=== PATIENT | male | born 1955 | race African-American/Black ===

== ENCOUNTER 2020-06-08 16:28 | Emergency (ER) | payer MEDICARE, MEDICAID, SELFPAY ==
[2020-06-08 16:28] VITALS: BP 159/93; PULSE 64; O2SAT 100
[2020-06-08 16:29] VITALS: BP 159/93; PULSE 65; RESP 17; TEMP 36.7; O2SAT 100; BMI 27.1
--- NOTE | 2020-06-08 16:36 | CT_ITS ---
PROCEDURE: CT HEAD/BRAIN WO CON CLINICAL INDICATION: FALL Head injury with headache/pain, contusion, abrasion or hematoma COMPARISON: No exams were available for comparison TECHNIQUE: Axial images obtained. All CT scans at the facility use one or more dose reduction, viz: automated exposure control, ma/kV adjustment per patient size (including targeted exams where dose is matched to indication, i.e. head), or iterative reconstruction technique. FINDINGS: No midline shift, mass effect, intracranial hemorrhage, hydrocephalus, or extra-axial fluid collection is evident. There is generalized atrophy with hypoattenuation of the periventricular white matter consistent with microangiopathic changes.. The most inferior aspect of the temporal lobes and cerebellum is excluded on the exam. The calvarium has an unremarkable appearance. Soft tissue swelling is present in the left frontal area consistent with contusion. No sinus air-fluid level. IMPRESSION: 1. No acute intracranial findings. 2. Left frontal scalp contusion Dictated by: Rodríguez Wiley MD 06/09/2020 06:58 Rodríguez Wiley MD in [facility] 06/09/2020 06:58
--- NOTE | 2020-06-08 16:36 | XR_ITS ---
PROCEDURE: XR PELVIS 1-2V CLINICAL INDICATION: FALL Posttraumatic pain a COMPARISON: No exams were available for comparison TECHNIQUE: XR Pelvis AP View FINDINGS: Osteoarthritic changes are present involving both hips. Along the left aspect of the proximal femur laterally there is a pointed area of bony density directed inferiorly. This could represent a fracture or an unusual bony of area of exostosis. Please correlate with patient's pain and tenderness. Hip films may provide further evaluation if clinically warranted. IMPRESSION: Possible fracture proximal left femur laterally. This is at the intertrochanteric region. Please correlate with patient's area of pain and tenderness. Hip films may provide further evaluation. Dictated by: Rodríguez Wiley MD 06/09/2020 05:29 Rodríguez Wiley MD in [facility] 06/09/2020 05:29
--- NOTE | 2020-06-08 16:36 | CT_ITS ---
PROCEDURE: CT CERVICAL SPINE WO CON CLINICAL INDICATION: FALL Neck injury with pain, contusion/abrasion or hematoma, cervical sprain/strain the COMPARISON: No exams were available for comparison TECHNIQUE: Axial images obtained with sagittal and coronal reformats. All CT scans at the facility use one or more dose reduction, viz: automated exposure control, ma/kV adjustment per patient size (including targeted exams where dose is matched to indication, i.e. head), or iterative reconstruction technique. Axial spiral CT scanning performed of the cervical spine beginning at the base of the skull and continuing to the upper T-spine. 3-D multiplanar reconstruction with 3-D manipulation of volumetric data set in image rendering was completed by the radiologist and/or technologist with the supervision of the radiologist on independent workstation. FINDINGS: There is reversal of the cervical lordosis. Postsurgical changes are present from prior anterior cervical disc fusion C5-C6. C2-C3: Right-sided foraminal narrowing from facet hypertrophy. Degenerative disc disease C3-C4: Degenerative disc disease with facet hypertrophy and bilateral foraminal narrowing right greater than left. C4-C5: Degenerative disc disease. C5-C6: Prior anterior cervical disc fusion with mild bilateral foraminal narrowing. C6-C7: Degenerative disc disease. C7-T1: Unremarkable. Lung apices are clear. IMPRESSION: 1. No acute fracture. 2. Cervical spondylosis with postsurgical changes. Dictated by: Rodríguez Wiley MD 06/09/2020 07:00 Rodríguez Wiley MD in [facility] 06/09/2020 07:00
--- NOTE | 2020-06-08 16:36 | XR_ITS ---
PROCEDURE: XR CHEST AP CLINICAL HISTORY: FALL Posttraumatic pain COMPARISON: No exams were available for comparison FINDINGS: The cardiomediastinal silhouette and pulmonary vascularity are within normal limits. The lungs are clear without infiltrates, suspicious nodules, or pleural effusions. No acute bony abnormalities. IMPRESSION: No acute findings. Dictated by: Rodríguez Wiley MD 06/09/2020 05:30 Rodríguez Wiley MD in [facility] 06/09/2020 05:30
--- NOTE | 2020-06-08 17:24 | HMH.EDGENADL ---
ED Disposition Clinical Impression: Forehead contusion Qualifiers: Encounter type: initial encounter Qualified Code(s): S00.83XA - Contusion of other part of head, initial encounter Forehead laceration Qualifiers: Encounter type: initial encounter Qualified Code(s): S01.81XA - Laceration without foreign body of other part of head, initial encounter Disposition: Home, Self-Care Condition on Discharge: Good Instructions: DI for Laceration Repair With Dermabond, How to Prevent Falls, DI for Closed Head Injury Additional Instructions: Additional instructions for HEAD INJURY: See your physician as soon as possible for further evaluation. Return immediately if severe headache, vomiting, problems with vision or speech, numbness or weakness of the extremities, or severe neck pain. Referrals: Manuel Casillas MD [Primary Care Provider] - - Critical Care Critical Care Time: No Attestation: On 06/08/20, the high probability of a clinically significant, sudden or life threatening deterioration of the following system(s) required my full and direct attention, intervention and personal management. The time I documented below is in addition to time spent performing reported procedures but includes the following listed in this critical care notation. Medical Decision Making - Yao Inquiry Pt receiving controlled substance: No Vital Signs: 06/08/20 16:28 06/08/20 16:29 Temperature 98.0 F Temperature Source Oral Pulse Rate [Right Radial] 64 65 Respiratory Rate 17 Blood Pressure [Right Arm] 159/93 H 159/93 H Blood Pressure Mean [Right Arm] 115 115 Blood Pressure Source [Right Arm] Automatic Cuff Blood Pressure Position [Right Arm] Sitting 02 Sat by Pulse Oximetry 100 100 Oxygen Delivery Method Room Air Orders (Tests/Meds): ORDERS Category Date Time Status CT cervical spine wo con Stat Cat Scan 06/08/20 16:[address] head/brain wo con Stat Cat Scan 06/08/20 16:36 Taken XR chest AP Stat Exams 06/08/20 16:36 Taken XR pelvis 1-2V Stat Exams 06/08/20 16:36 Taken - CT Data CT Scan: Head Time Received: 17:24 ([facility] fax) ED CT Reviewed: Yes: I have viewed the radiologist's interpretation Findings Narrative: Head: Moderate left frontal soft tissue swelling and age-related changes but no evidence of acute intracranial pathology Cervical spine: No evidence of cervical spine fracture. General Adult HPI - General Chief complaint: Fall Stated complaint: FALL Time Seen by Provider: 06/08/20 18:05 Mode of Arrival: EMS Limitations: No Limitations Description of Symptoms (Recalled from ER Triage Doc. by RN): PT REPORTS TO ED 7 VIA [facility] FROM [facility]. S/P FALL AFTER BENDING OVER TRYING TO DOG HAIR CLIPPER HIS PHONE OFF THE FLOOR. LEFT EYE SWELLING NOTED. PT DENIES OTHER COMPLAINTS OR PAIN. HEMATOMA NOTED AT SITE. 2 STERI STRIPS PLACED TO SMALL ABRASION AT SITE PER USP. - History of Present Illness HPI narrative: Brought in by ambulance from [facility]. The patient says he was trying to bulk picker his phone when he fell striking his left forehead area. He has a small laceration and soft tissue swelling in that area. Denies loss of consciousness. Denies any other pain besides his head. Denies neck pain. No injury to chest, abdomen, back, or extremities. Arrives with Steri-Strips on place over laceration. Steri-Strip removed for examination and treatment. - Related Data Home Medications Medication Instructions Recorded Confirmed acetaminophen 500 mg capsule 500 mg PO BID cap 12/24/19 12/24/19 amlodipine 10 mg tablet 10 mg PO DAILY tab 12/24/19 12/24/19 atorvastatin 40 mg tablet 40 mg PO DAILY tab 12/24/19 12/24/19 lisinopril 40 mg tablet 40 mg PO DAILY tab 12/24/19 12/24/19 tamsulosin 0.4 mg capsule mg PO 12/24/19 12/24/19 trazodone 100 mg tablet 100 mg PO QHS tab 12/24/19 12/24/19 Allergies Allergy/AdvReac Type Severity Reaction Status Date / Time No Known Al
[2020-06-08 18:45] VITALS: BP 155/89; PULSE 78; RESP 18; TEMP 36.6; O2SAT 98
== END 2020-06-08 18:46 | disposition home or self-care (01) ==
PROVIDERS: Emergency Provider Emergency Medicine; PCP Internal Medicine Adolescent Medicine
DX: S01.81XA Laceration without foreign body of other part of head, initial encounter (principal); S00.83XA Contusion of other part of head, initial encounter; W01.0XXA Fall on same level from slipping, tripping and stumbling without subsequent striking against object, initial encounter; Y92.129 Unspecified place in nursing home as the place of occurrence of the external cause; F41.8 Other specified anxiety disorders; E78.5 Hyperlipidemia, unspecified; I10 Essential (primary) hypertension; Z96.642 Presence of left artificial hip joint
CPT/HCPCS: 12011; 70450; 71045; 72125; 72170; 99283

== ENCOUNTER 2020-10-06 19:42 | Emergency (ER) | payer MEDICARE, MEDICAID, SELFPAY ==
[2020-10-06 19:32] VITALS: BP 146/90; PULSE 90; RESP 18; TEMP 36.8; O2SAT 98
--- NOTE | 2020-10-06 19:57 | XR_ITS ---
PROCEDURE: XR CHEST PORTABLE CLINICAL HISTORY: fall Posttraumatic pain COMPARISON: CR XR CHEST AP from 06/08/2020 FINDINGS: The cardiomediastinal silhouette and pulmonary vascularity are within normal limits. The lungs are clear without infiltrates, suspicious nodules, or pleural effusions. Mild osteoarthritic change of the AC joints. Bone plate is present along the lower cervical spine. IMPRESSION: No acute findings. Dictated by: Rodríguez Wiley MD 10/07/2020 05:07 Rodríguez Wiley MD in [facility] 10/07/2020 05:07
--- NOTE | 2020-10-06 19:57 | CT_ITS ---
PROCEDURE: CT CERVICAL SPINE WO CON CLINICAL INDICATION: fall Neck injury with pain, contusion/abrasion or hematoma, cervical sprain/strain the COMPARISON: CT CT CERVICAL SPINE WO CON from 06/08/2020 TECHNIQUE: Axial images obtained with sagittal and coronal reformats. All CT scans at the facility use one or more dose reduction, viz: automated exposure control, ma/kV adjustment per patient size (including targeted exams where dose is matched to indication, i.e. head), or iterative reconstruction technique. Axial spiral CT scanning performed of the cervical spine beginning at the base of the skull and continuing to the upper T-spine. 3-D multiplanar reconstruction with 3-D manipulation of volumetric data set in image rendering was completed by the radiologist and/or technologist with the supervision of the radiologist on independent workstation. FINDINGS: No acute fracture or dislocation. There is reversal of the upper cervical lordosis. Mild degenerative disc disease at C2-C3 C3-C4 C4-C5 C5-C6 and C6-C7. Prior anterior cervical disc fusion at C5-C6. Mild foraminal narrowing on the right at C3-C4. Lung apices are clear. IMPRESSION: No acute fracture. Chronic changes as described above. Dictated by: Rodríguez Wiley MD 10/07/2020 06:32 Rordíguez Wiley MD in [facility] 10/07/2020 06:32
--- NOTE | 2020-10-06 19:57 | CT_ITS ---
PROCEDURE: CT HEAD/BRAIN WO CON CLINICAL INDICATION: fall Posttraumatic pain COMPARISON: CT CT HEAD/BRAIN WO CON from 06/08/2020 TECHNIQUE: Axial images obtained. All CT scans at the facility use one or more dose reduction, viz: automated exposure control, ma/kV adjustment per patient size (including targeted exams where dose is matched to indication, i.e. head), or iterative reconstruction technique. FINDINGS: No midline shift, mass effect, intracranial hemorrhage, hydrocephalus, or extra-axial fluid collection is evident. The calvarium has an unremarkable appearance. No mastoid effusion. Mild mucosal thickening of the left maxillary ethmoid sinuses. Non-specific flattening of the nasal bones incompletely image. IMPRESSION: 1. No acute intracranial findings. 2. Mild sinus disease. 3. Mild flattening of the nasal incompletely imaged Dictated by: Rodríguez Wiley MD 10/07/2020 06:19 Rodríguez Wiley MD in [facility] 10/07/2020 06:19
--- NOTE | 2020-10-06 19:57 | XR_ITS ---
PROCEDURE: XR PELVIS 1-2V CLINICAL INDICATION: fall Posttraumatic pain COMPARISON: CR XR PELVIS 1-2V from 06/08/2020 TECHNIQUE: XR Pelvis AP View FINDINGS: No fracture or dislocation is evident. Mild osteoarthritic changes are present involving the hips. There is an area of indentation along right femoral neck/head junction and may be seen with femoral acetabular impingement. Bony spurring/exostosis noted along the left subtrochanteric region laterally. Hypertrophy noted along the left femoral neck No lytic or blastic change. IMPRESSION: As above, no acute finding Dictated by: Rodríguez Wiley MD 10/07/2020 05:06 Rodríguez Wiley MD in [facility] 10/07/2020 05:06
--- NOTE | 2020-10-06 20:05 | HMH.EDFALL ---
ED Disposition Clinical Impression: Concussion without loss of consciousness Qualifiers: Encounter type: initial encounter Qualified Code(s): S06.0X0A - Concussion without loss of consciousness, initial encounter Contusion of hip Qualifiers: Encounter type: initial encounter Laterality: left Qualified Code(s): S70.02XA - Contusion of left hip, initial encounter Scalp laceration Qualifiers: Encounter type: initial encounter Qualified Code(s): S01.01XA - Laceration without foreign body of scalp, initial encounter Disposition: Home, Self-Care Condition on Discharge: Good Instructions: DI for Laceration Repair -- Soto Additional Instructions: soto out 10 days and resume prev orders Referrals: Manuel Casillas MD [Primary Care Provider] - - Critical Care Critical Care Time: No Attestation: On 10/06/20, the high probability of a clinically significant, sudden or life threatening deterioration of the following system(s) required my full and direct attention, intervention and personal management. The time I documented below is in addition to time spent performing reported procedures but includes the following listed in this critical care notation. Medical Decision Making - Medical Records Medical records reviewed: Yes: I reviewed the patient's medical records. - Yao Inquiry Pt receiving controlled substance: No Vital Signs: 10/06/20 19:32 Temperature 98.3 F Temperature Source Oral Pulse Rate [Right] 90 Respiratory Rate 18 Blood Pressure [Right Arm] 146/90 H Blood Pressure Mean [Right Arm] 108 02 Sat by Pulse Oximetry 98 Oxygen Delivery Method Room Air Orders (Tests/Meds): ORDERS Category Date Time Status CT cervical spine wo con Stat Cat Scan 10/06/20 19:[address] head/brain wo con Stat Cat Scan 10/06/20 19:[address] hip LT wo con Stat Cat Scan 10/06/20 21:[address] hip RT wo con Stat Cat Scan 10/06/20 21:45 Stop Req XR chest portable Stat Exams 10/06/20 19:57 Taken XR pelvis 1-2V Stat Exams 10/06/20 19:57 Taken - Radiology Data #1 Image(s): Chest, Pelvis Image Reviewed: Yes I reviewed the patient's radiology image Preliminary Findings: No Fracture Seen - CT Data CT Scan: Head, C-Spine, Other (lt hip) Time Received: 23:[address] Reviewed: Yes: I have viewed the radiologist's interpretation Preliminary Findings: No Fracture Seen Medical Decision Narrative: no acute fx and pt at baseline and lac stapled Fall HPI - General Chief Complaint: Fall Stated Complaint: fall Time Seen by Provider: 10/06/20 20:00 Mode of Arrival: EMS Source of Information: Patient, EMS, Medical Record Limitations: Altered Mental Status Description of Symptoms (Recalled from ER Triage Doc. by RN): halfway reports pt fell out of bed striking head on wheelchair. pt has lac on back of head - History of Present Illness HPI Narrative: pt fell at [facility] with scalp lac - no loc and no other c/o reported MD complaint: fall Onset (ago): hour(s) Fall from: wheelchair Fall witnessed: no Place fall occurred: halfway/[facility] Loss of consciousness: none Prolonged down time: no Symptoms prior to fall: none Location of injury: head, neck Severity: moderate Associated symptoms (after fall): denies - Related Data Home Medications Medication Instructions Recorded Confirmed acetaminophen 500 mg capsule 500 mg PO BID cap 12/24/19 12/24/19 amlodipine 10 mg tablet 10 mg PO DAILY tab 12/24/19 12/24/19 atorvastatin 40 mg tablet 40 mg PO DAILY tab 12/24/19 12/24/19 lisinopril 40 mg tablet 40 mg PO DAILY tab 12/24/19 12/24/19 tamsulosin 0.4 mg capsule mg PO 12/24/19 12/24/19 trazodone 100 mg tablet 100 mg PO QHS tab 12/24/19 12/24/19 Allergies Allergy/AdvReac Type Severity Reaction Status Date / Time No Known Allergies Allergy Verified 06/08/20 16:35 [facility] History - Hepatitis A Screen Drug use history?: No High risk sexual behaviors?: No History of sexually goldstein
--- NOTE | 2020-10-06 21:48 | CT_ITS ---
PROCEDURE: CT HIP LT WO CON CLINICAL HISTORY: fall Posttraumatic pain COMPARISON: CR XR PELVIS 1-2V from 10/06/2020 TECHNIQUE: Axial images obtained with sagittal and coronal reformats. All CT scans at the facility use one or more dose reduction, viz: automated exposure control, ma/kV adjustment per patient size (including targeted exams where dose is matched to indication, i.e. head), or iterative reconstruction technique. FINDINGS: Mild osteoarthritic changes of the left hip with joint space narrowing, osteosclerosis, and subchondral cystic changes of the femoral head and acetabulum. No acute fracture or dislocation. No lytic or blastic change. Exostosis is present involving the proximal femur laterally in the subtrochanteric region. Mild sclerosis of the left SI joint superiorly with fusion. Moderate amount of feces noted in the colon. IMPRESSION: 1. No acute fracture. 2. Degenerative changes as described above Dictated by: Rodríguez Wiley MD 10/07/2020 06:01 oRdríguez Wiley MD in [facility] 10/07/2020 06:01
[2020-10-06 23:25] VITALS: BP 134/82; PULSE 82; RESP 14; TEMP 36.8; O2SAT 98
== END 2020-10-06 23:26 | disposition home or self-care (01) ==
PROVIDERS: Emergency Provider Emergency Medicine; PCP Internal Medicine Adolescent Medicine
DX: S01.01XA Laceration without foreign body of scalp, initial encounter (principal); S06.0X0A Concussion without loss of consciousness, initial encounter; S70.02XA Contusion of left hip, initial encounter; W06.XXXA Fall from bed, initial encounter; Y92.122 Bedroom in nursing home as the place of occurrence of the external cause; F41.8 Other specified anxiety disorders; E78.5 Hyperlipidemia, unspecified; I10 Essential (primary) hypertension; Z96.642 Presence of left artificial hip joint; Z79.899 Other long term (current) drug therapy
CPT/HCPCS: 12002; 70450; 71045; 72125; 72170; 73700; 99283

== ENCOUNTER 2020-11-07 17:44 | Emergency (ER) | payer MEDICARE, MEDICAID, SELFPAY ==
[2020-11-07 17:44] VITALS: BP 160/90; PULSE 71; RESP 18; TEMP 36.7; O2SAT 98; BMI 26.4
[2020-11-07 18:01] VITALS: BP 148/91; PULSE 71; O2SAT 100
--- NOTE | 2020-11-07 18:02 | HMH.EDGENADL ---
ED Disposition Clinical Impression: Seizure-like activity Disposition: Home, Self-Care Condition on Discharge: Good Instructions: DI for Altered Mental Status Additional Instructions: See your physician as soon as possible for follow-up. Return to the emergency department if seizure-like activity recurs. Referrals: Provider,Referral, [Primary Care Provider] - - Critical Care Critical Care Time: No Attestation: On 11/07/20, the high probability of a clinically significant, sudden or life threatening deterioration of the following system(s) required my full and direct attention, intervention and personal management. The time I documented below is in addition to time spent performing reported procedures but includes the following listed in this critical care notation. Medical Decision Making - Yao Inquiry Pt receiving controlled substance: No Vital Signs: 11/07/20 17:44 Temperature 98.1 F Temperature Source Oral Pulse Rate [Right] 71 Respiratory Rate 18 Blood Pressure [Right Arm] 160/90 H Blood Pressure Mean [Right Arm] 113 02 Sat by Pulse Oximetry 98 Oxygen Delivery Method Room Air - Lab Data Lab Results 11/07/20 17:40: WBC 5.0, RBC 4.90, Hgb 14.9, Hct 45.1, MCV 92.1, MCH 30.5, MCHC 33.1, RDW 13.4, Plt Count 302, MPV 6.9 L, Neut % (Auto) 51.6, Lymph % (Auto) 37.7, Bennett % (Auto) 6.1, Eos % (Auto) 4.0, Baso % (Auto) 0.7, Neut # (Auto) 2.6, Lymph # (Auto) 1.9, Bennett # (Auto) 0.3, Eos # (Auto) 0.2, Baso # (Auto) 0.0 11/07/20 17:40: Sodium 141, Potassium 4.0, Chloride 102, Carbon Dioxide 29, Anion Gap 14.0, BUN 13, Creatinine 0.70, Estimated Creat Clear 95, Estimated GFR 114, Est GFR ( Amer) 138, Glucose 105 H, Calcium 10.4 H, Total Bilirubin 0.6, AST 32, ALT 23, Alkaline Phosphatase 68, Troponin I < 0.01, Total Protein 8.3 H, Albumin 5.1 H, Globulin 3.2, Albumin/Globulin Ratio 1.6 11/07/20 17:40: Urine Color Yellow, Urine Appearance Clear, Urine pH 6.0, Ur Specific [place] 1.015, Urine Protein Negative, Urine Glucose (UA) Negative, Urine Ketones Negative, Urine Blood Negative, Urine Nitrate Negative, Urine Bilirubin Negative, Urine Urobilinogen 0.2, Ur Leukocyte Esterase Negative, Urine RBC None, Urine WBC Occasional, Ur Squamous Epith Cells None, Urine Bacteria None Result diagrams: 11/07/20 17:40 11/07/20 17:40 Orders (Tests/Meds): ORDERS Category Date Time Status Troponin I Q3H Lab 11/07/20 21:15 Ordered Troponin I Q3H Lab 11/08/20 00:15 Ordered - Radiology Data #1 Image(s): Chest Image Reviewed: Yes I have reviewed radiologist's interpretation PROCEDURE INFORMATION: Exam: XR Chest Exam date and time: 11/07/2020 6:03 PM Age: 65 years old Clinical indication: Other: AMS TECHNIQUE: Imaging protocol: XR of the chest. Views: 1 view. COMPARISON: CR XR CHEST PORTABLE 10/06/2020 8:20 PM FINDINGS: Lungs: Unremarkable. No consolidation. Pleural spaces: Unremarkable. No pleural effusion. No pneumothorax. Heart/Mediastinum: Unremarkable. No cardiomegaly. Vasculature: Mild aortic tortuosity. Bones/joints: Unremarkable. IMPRESSION: No acute findings. - CT Data CT Scan: Head Time Received: 19:[address] Reviewed: Yes: I have viewed the radiologist's interpretation Findings Narrative: PROCEDURE INFORMATION: Exam: CT Head Without Contrast Exam date and time: 11/07/2020 6:03 PM Age: 65 years old Clinical indication: Altered mental status/memory loss; Additional info: AMS TECHNIQUE: Imaging protocol: Computed tomography of the head without contrast. Radiation optimization: All CT scans at this facility use at least one of these dose optimization techniques: automated exposure control; mA and/or kV adjustment per patient size (includes targeted exams where dose is matched to clinical indication); or iterative reconstruction. COMPARISON: CT HEAD/BRAIN WO CON 10/06/2020
--- NOTE | 2020-11-07 18:03 | CT_ITS ---
PROCEDURE INFORMATION: Exam: CT Head Without Contrast Exam date and time: 11/07/2020 6:03 PM Age: 65 years old Clinical indication: Altered mental status/memory loss; Additional info: AMS TECHNIQUE: Imaging protocol: Computed tomography of the head without contrast. Radiation optimization: All CT scans at this facility use at least one of these dose optimization techniques: automated exposure control; mA and/or kV adjustment per patient size (includes targeted exams where dose is matched to clinical indication); or iterative reconstruction. COMPARISON: CT HEAD/BRAIN WO CON 10/06/2020 8:10 PM FINDINGS: Brain: Normal. No hemorrhage. Unremarkable white matter. No mass effect. Cerebral ventricles: No ventriculomegaly. Bones/joints: Unremarkable. No acute fracture. Paranasal sinuses: Visualized sinuses are unremarkable. No fluid levels. Mastoid air cells: Visualized mastoid air cells are well aerated. Soft tissues: Unremarkable. IMPRESSION: No acute intracranial abnormality.
--- NOTE | 2020-11-07 18:08 | ECG_ITS ---
APPROVED REPORT Exam: Resting ECG HR:62 bpm ECG Measurements Heart Rate 62 AXES MN 146 P 93 QRSd 92 QRS 14 QT 396 T 61 QTc 401 Conclusion Normal sinus rhythm Septal infarct, age undetermined Abnormal ECG Electronically signed by : Manuel Casillas, 11/09/2020 20:30:14
[2020-11-07 18:10] LABS: Microscopic, Urine URINE MICROSCOPIC (MICROSCOPIC)
[2020-11-07 18:11] LABS: Basophils % 0.7 % (0.1-2.0); Eosinophils # 0.2 K/mm3 (0.0-0.4); Hematocrit 45.1 % (42.0-52.0); Hemoglobin 14.9 g/dL (14.1-18.0); Lymphocytes # 1.9 K/mm3 (0.7-4.5); Lymphocytes % 37.7 % (10-50); Mean Corpuscular HGB Conc 33.1 g/dL (31.8-35.4); Mean Corpuscular Hemoglobin 30.5 pg (27.0-31.2); Mean Corpuscular Volume 92.1 fl (80-94); Mean Platelet Volume 6.9 fl (7.4-10.4); Monocytes # 0.3 K/mm3 (0.1-1.0); Monocytes % 6.1 % (1.7-9.3); Neutrophils # 2.6 K/mm3 (1.8-7.8); Neutrophils % 51.6 % (37.0-80.0); Platelet Count 302 K/mm3 (142-424); Red Cell Distribution Width 13.4 % (11.5-17.5)
[2020-11-07 18:12] LABS: Appearance,Urine CLEAR (Clear); Bilirubin,Urine Negative (Negative); Blood, Urine Negative (Negative); Chloride 102 mmol/L (98-107); Color,Urine YELLOW (Yellow); Glucose,Urine (UA) Negative (Negative); Ketones,Urine Negative (Negative); Leukocyte Esterase,Urine Negative (Negative); Nitrate,Urine Negative (Negative); Protein,Urine Negative (Negative); Sodium 141 mmol/L (136-145); Specific Gravity, Urine 1.015 (1.005-1.030); Urobilinogen,Urine 0.2 EU/dl (0.2)
[2020-11-07 18:15] LABS: Alanine Aminotransferase 23 U/L (12-78); Alkaline Phosphatase 68 U/L (38-126); Aspartate Amino Transferase 32 U/L (17-59); Bilirubin,Total 0.6 mg/dl (0.2-1.3); Blood Urea Nitrogen 13 mg/dl (9-20); Creatinine Clearance Estimated 95 mL/min (50-200); Estimated Glomerular Filt Rate 114 ml/min (>60); GFR (African American) 138 ML/MIN (>60)
[2020-11-07 18:16] LABS: Albumin Level 5.1 g/dl (3.5-5.0); Albumin/Globulin Ratio 1.6 (1.1-1.8); Calcium 10.4 mg/dl (8.4-10.2); Carbon Dioxide 29 mmol/L (22.0-30.0); Globulin 3.2 g/dL (1.3-3.2); Glucose 105 mg/dl (74-100); Total Protein,Serum 8.3 g/dl (6.3-8.2)
[2020-11-07 18:22] LABS: WBC,Urine Occasional #/hpf (0-3)
[2020-11-07 18:28] LABS: Troponin I < 0.01 ng/ml (0.00-0.034)
[2020-11-07 20:33] VITALS: BP 157/91; PULSE 74; O2SAT 97
--- NOTE | 2020-11-07 20:47 | PC.NURSE ---
called report to gustavo Larson/andrea Garcia. Called [facility] and notified on transfer request. Stated it would be a while d/t transfer truck out.
[2020-11-08 00:22] VITALS: BP 122/76; PULSE 63; O2SAT 99
[2020-11-08 00:31] VITALS: BP 116/72; O2SAT 96
[2020-11-08 01:00] VITALS: BP 120/73; PULSE 65; O2SAT 100
[2020-11-08 01:44] VITALS: BP 121/74; PULSE 63; RESP 18; TEMP 36.5; O2SAT 98
== END 2020-11-08 01:48 | disposition home or self-care (01) ==
PROVIDERS: Emergency Provider Emergency Medicine
DX: R41.82 Altered mental status, unspecified (principal); G40.909 Epilepsy, unspecified, not intractable, without status epilepticus; I10 Essential (primary) hypertension; E78.5 Hyperlipidemia, unspecified
CPT/HCPCS: 70450; 71045; 80053; 81001; 84484; 85025; 93005; 99283

== ENCOUNTER → 2021-09-21 14:36 | Outpatient (CLI) | payer MEDICARE, MEDICAID, SELFPAY ==
[2021-09-21 15:04] LABS: Microscopic, Urine URINE MICROSCOPIC (MICROSCOPIC)
[2021-09-21 15:22] LABS: Appearance,Urine CLEAR (Clear); Bilirubin,Urine Negative (Negative); Blood, Urine Negative (Negative); Color,Urine YELLOW (Yellow); Glucose,Urine (UA) Negative (Negative); Ketones,Urine TRACE (Negative); Leukocyte Esterase,Urine Negative (Negative); Nitrate,Urine Negative (Negative); Protein,Urine TRACE (Negative); Specific Gravity, Urine 1.025 (1.005-1.030); Urobilinogen,Urine 0.2 EU/dl (0.2)
[2021-09-21 16:57] LABS: Bacteria,Urine 4+ /lpf
== END ==
PROVIDERS: Visit Provider Nurse Practitioner Family
DX: N39.0 Urinary tract infection, site not specified (principal)
CPT/HCPCS: 81001; 87086; 87088

== ENCOUNTER 2022-01-28 10:49 | Emergency (ER) | payer MEDICARE, MEDICAID, SELFPAY ==
[2022-01-28 10:47] VITALS: BP 125/89; PULSE 61; RESP 18; TEMP 36.9; O2SAT 100; BMI 22.3
--- NOTE | 2022-01-28 10:49 | CT_ITS ---
FINAL REPORT TECHNIQUE: Thin section axial images were obtained from skull base to vertex without contrast. This study was performed with techniques to keep radiation doses as low as reasonably achievable (ALARA). Individualized dose reduction techniques using automated exposure control or adjustment of mA and/or kV according to the patient's size were employed. CLINICAL HISTORY: trauma, fall hit back of head. COMPARISON: 11/07/2020 FINDINGS: There is no mass effect or midline shift. There is atrophy with mild ventricular enlargement. A new, small right subdural hemorrhage is seen on axial image 40 measuring 3 mm anteriorly. On axial image number 50, this measures 4 mm posteriorly. The posterior fossa is without acute abnormality. Basilar cisterns are preserved. There is soft tissue edema of the right temporal and parietal scalp. No skull fracture is seen. IMPRESSION: New, small right subdural hemorrhage without mass effect or midline shift. Atrophy. The emergency room nurse, Ijeoma was notified of these findings at 12:49 p.m.. Reviewed, Interpreted and Dictated by Keya Cortez MD Transcribed by Lin Cassidy Authenticated and [facility]
--- NOTE | 2022-01-28 10:49 | CT_ITS ---
FINAL REPORT TECHNIQUE: Thin section axial images were obtained through the cervical spine without contrast. Multiplanar reconstruction images were obtained from the axial data. Exam was performed using dose reduction techniques. CLINICAL HISTORY: trauma, fall COMPARISON: 10/07/2020 FINDINGS: There is no acute fracture or acute malalignment of the cervical spine. There is no evidence of unilateral or bilateral facet lock. Vertebral body height is preserved. There are postoperative changes of anterior fusion at C5-6. Reversal of lordosis is unchanged from prior exam. Craniocervical junction is intact. There is stable, multilevel degenerative disc disease. No acute paraspinal abnormality is identified. IMPRESSION: Stable postoperative and degenerative changes without acute osseous abnormality of the cervical spine. Reviewed, Interpreted and Dictated by Keya Cortez MD Transcribed by Lin Cassidy Authenticated and [facility]
--- NOTE | 2022-01-28 10:51 | HMH.EDFALL ---
ED Disposition Clinical Impression: Subdural hematoma Disposition: Xfer Short-Term Hosp Condition on Discharge: Good - Critical Care Critical Care Time: No Attestation: On , the high probability of a clinically significant, sudden or life threatening deterioration of the following system(s) required my full and direct attention, intervention and personal management. The time I documented below is in addition to time spent performing reported procedures but includes the following listed in this critical care notation. Medical Decision Making - Medical Records Medical records reviewed: Yes: I reviewed the patient's medical records. - Yao Inquiry Pt receiving controlled substance: No Vital Signs: 01/28/22 10:47 Temperature 98.4 F Temperature Source Oral Pulse Rate [Right Radial] 61 Respiratory Rate 18 Blood Pressure [Right Arm] 125/89 Blood Pressure Mean [Right Arm] 101 Blood Pressure Source [Right Arm] Automatic Cuff Blood Pressure Position [Right Arm] Sitting 02 Sat by Pulse Oximetry 100 Oxygen Delivery Method Room Air - Lab Data Lab Results 01/28/22 11:48: Urine Color Yellow, Urine Appearance Turbid, Urine pH 6.0, Ur Specific [place] 1.020, Urine Protein Negative, Urine Glucose (UA) Negative, Urine Ketones 1+, Urine Blood Negative, Urine Nitrate Negative, Urine Bilirubin Negative, Urine Urobilinogen 1.0, Ur Leukocyte Esterase Trace, Urine RBC Occasional, Urine WBC Occasional, Ur Squamous Epith Cells Occasional, Amorphous Sediment 2+, Urine Bacteria 4+ Orders (Tests/Meds): ORDERS Category Date Time Status Urine Culture Stat Micro 01/28/22 11:48 Received - Physician Consults Time: 13:16 (discussed with Dr John REES transfer accepts to ED) Fall HPI - General Stated Complaint: Fall Time Seen by Provider: 01/28/22 10:51 Limitations: Physical Limitations - History of Present Illness HPI Narrative: fall from standing at [place], hit head on floor/chair, baseline ms, no brenda whittaker MD complaint: fall Onset (ago): minute(s) Fall from: standing Place fall occurred: custodial/SNF Symptoms prior to fall: none Location of injury: head Associated symptoms (after fall): denies - Related Data Home Medications Medication Instructions Recorded Confirmed acetaminophen 500 mg capsule 500 mg PO BID cap 12/24/19 12/24/19 amlodipine 10 mg tablet 10 mg PO DAILY tab 12/24/19 12/24/19 atorvastatin 40 mg tablet 40 mg PO DAILY tab 12/24/19 12/24/19 lisinopril 40 mg tablet 40 mg PO DAILY tab 12/24/19 12/24/19 tamsulosin 0.4 mg capsule mg PO 12/24/19 12/24/19 trazodone 100 mg tablet 100 mg PO QHS tab 12/24/19 12/24/19 Allergies Allergy/AdvReac Type Severity Reaction Status Date / Time No Known Allergies Allergy Verified 06/08/20 16:35 [facility] History - Hepatitis A Screen Attestation statement:: This patient has been screened for Hepatitis A risk factors. Medical History: Reports:: Anxiety, Depression, Hyperlipidemia, Hypertension Denies:: Diabetes Mellitus Type 1, Diabetes Mellitus Type 2 Other Medical History: Reports: Other Comment: freq falls,gait disturbance Laterality Cases: Left: Total Hip Replacement Other Surgeries: Yes: Colonoscopy, Other Comment: lt knee - Social History Smoking Status: Unknown if ever smoked Alcohol Intake: never Substance Use Type: denies use Occupational Status: disabled Housing: custodial - Psychiatric History Pschychiatric History:: Reports:: Anxiety, Depression ROS Obtained: Yes All systems reviewed & no additional complaints Physical Exam - General General appearance: alert, in no apparent distress - Head Head exam: other (rt posterior scalp contusion) - Eye Eye exam: Present: normal appearance, EOMI - ENT ENT exam: Present: normal exam, normal oropharynx - Neck Neck exam: Present: normal inspection, full ROM, trachea midline - Chest Chest inspection: Present: normal inspection, symmetric chest wall rise. Abs
--- NOTE | 2022-01-28 11:11 | PC.NURSE ---
Pt to CT via stretcher
--- NOTE | 2022-01-28 11:41 | PC.NURSE ---
[facility] called and was checking on patient; Hali Maciel is who I spoke with. they are aware that we are waiting on scan reports at this time.
--- NOTE | 2022-01-28 11:51 | PC.NURSE ---
assisted pt with using urinal at this time. Pt urine was foul smelling and cloudy in nature, notified TAI LEWIS. Urine specimen sent to lab.
[2022-01-28 11:59] LABS: Microscopic, Urine URINE MICROSCOPIC (MICROSCOPIC)
[2022-01-28 12:08] LABS: Appearance,Urine TURBID (Clear); Bilirubin,Urine Negative (Negative); Blood, Urine Negative (Negative); Color,Urine YELLOW (Yellow); Glucose,Urine (UA) Negative (Negative); Ketones,Urine 1+ (Negative); Leukocyte Esterase,Urine TRACE (Negative); Nitrate,Urine Negative (Negative); Protein,Urine Negative (Negative)
[2022-01-28 12:26] LABS: Amorphous Sediment,Urine 2+ /lpf; Bacteria,Urine 4+ /lpf; RBC,Urine Occasional #/hpf (0-3); Squamous Epithelial Cell,Urine Occasional #/hpf (0-5); WBC,Urine Occasional #/hpf (0-3)
--- NOTE | 2022-01-28 12:46 | PC.NURSE ---
checked on status of CT results, rad staff states [facility] is in reading scans at this time.
--- NOTE | 2022-01-28 12:49 | PC.NURSE ---
took critical report from Chantel at [facility] at this time. States pt has a small R sided sudural hemorrhage with no mass effect. Results repeated and verified with Chantel
--- NOTE | 2022-01-28 12:51 | PC.NURSE ---
notified TAI LEWIS of [facility] critical report at this time, pt has a small R subdural hemorrhage, no mass effect. TAI LEWIS states contact [facility] for possible transfer of pt.
--- NOTE | 2022-01-28 12:52 | PC.NURSE ---
Contacting [facility] for patient transfer
--- NOTE | 2022-01-28 12:56 | PC.NURSE ---
Spoke with Britton in radiology regarding powersharing images to [facility]. Awaiting call back from [facility] once they have reviewed images.
--- NOTE | 2022-01-28 13:11 | PC.NURSE ---
MDs called back and Dr. Stacy is speaking with Neurosurgery at this time
--- NOTE | 2022-01-28 13:13 | PC.NURSE ---
Called radiology and spoke with Josselyn requesting imaging disc for patient transfer.
--- NOTE | 2022-01-28 13:17 | PC.NURSE ---
dr pak accepted pt to [facility]
--- NOTE | 2022-01-28 13:38 | PC.NURSE ---
Called and spoke with Teri at [facility] regarding patient transfer to ER; pt is ready and is able to transport BLS per ER MD
--- NOTE | 2022-01-28 13:48 | PC.NURSE ---
Called report to [facility] and updated Barker of transfer status
--- NOTE | 2022-01-28 14:37 | PC.NURSE ---
awaiting transport for pt to transfer to [facility]
--- NOTE | 2022-01-28 15:13 | PC.NURSE ---
EMS has arrived to transport pt to [facility]
[2022-01-28 15:20] VITALS: BP 127/79; PULSE 68; RESP 16; TEMP 36.8; O2SAT 99
== END 2022-01-28 15:20 | disposition short-term general hospital (02) ==
PROVIDERS: Emergency Provider Emergency Medicine
DX: S06.5X9A Traumatic subdural hemorrhage with loss of consciousness of unspecified duration, initial encounter; W19.XXXA Unspecified fall, initial encounter; Z79.899 Other long term (current) drug therapy; F41.9 Anxiety disorder, unspecified; F32.A Depression, unspecified; E78.5 Hyperlipidemia, unspecified; I10 Essential (primary) hypertension
CPT/HCPCS: 70450; 72125; 81001; 87086; 99285

== ENCOUNTER → 2022-05-20 08:34 | Outpatient (CLI) | payer MEDICARE, MEDICAID, SELFPAY ==
[2022-05-20 09:03] LABS: Microscopic, Urine URINE MICROSCOPIC (MICROSCOPIC)
[2022-05-20 09:24] LABS: Basophils # 0.1 K/mm3 (0-0.2); Basophils % 0.7 % (0.1-2.0); Eosinophils # 0.2 K/mm3 (0.0-0.4); Eosinophils % 2.5 % (0.1-12.0); Hematocrit 39.6 % (42.0-52.0); Hemoglobin 12.4 g/dL (14.1-18.0); Lymphocytes # 2.4 K/mm3 (0.7-4.5); Lymphocytes % 33.3 % (10-50); Mean Corpuscular HGB Conc 31.3 g/dL (31.8-35.4); Mean Corpuscular Hemoglobin 30.2 pg (27.0-31.2); Mean Corpuscular Volume 96.6 fl (80-94); Mean Platelet Volume 7.8 fl (7.4-10.4); Monocytes # 0.4 K/mm3 (0.1-1.0); Neutrophils # 4.3 K/mm3 (1.8-7.8); Neutrophils % 58.5 % (37.0-80.0); Platelet Count 447 K/mm3 (142-424); Red Blood Count 4.09 M/mm3 (4.60-6.20); Red Cell Distribution Width 14.2 % (11.5-17.5); White Blood Count 7.3 K/mm3 (4.8-10.8)
[2022-05-20 09:36] LABS: Bilirubin,Urine Negative (Negative); Blood, Urine Negative (Negative); Color,Urine YELLOW (Yellow); Glucose,Urine (UA) Negative (Negative); Ketones,Urine TRACE (Negative); Leukocyte Esterase,Urine 1+ (Negative); Nitrate,Urine Negative (Negative); PH,Urine 6.5 (5.0-8.5); Protein,Urine Negative (Negative); Urobilinogen,Urine 0.2 EU/dl (0.2)
[2022-05-20 09:38] LABS: Appearance,Urine Cloudy (Clear)
[2022-05-20 10:07] LABS: Bacteria,Urine 4+ /lpf; Squamous Epithelial Cell,Urine Occasional #/hpf (0-5)
[2022-05-20 10:30] LABS: Anion Gap 16.2 mEq/L (5-15); Blood Urea Nitrogen 17 mg/dl (9-20); Calcium 9.9 mg/dl (8.4-10.2); Carbon Dioxide 30 mmol/L (22.0-30.0); Chloride 98 mmol/L (98-107); Estimated Glomerular Filt Rate 113 ml/min (>60); GFR (African American) 137 ML/MIN (>60); Glucose 114 mg/dl (74-100); Potassium 4.2 mmoL/L (3.5-5.1); Sodium 140 mmol/L (136-145)
== END ==
PROVIDERS: PCP Internal Medicine Adolescent Medicine; Visit Provider Internal Medicine Adolescent Medicine
DX: R41.82 Altered mental status, unspecified (principal); N39.0 Urinary tract infection, site not specified; B95.2 Enterococcus as the cause of diseases classified elsewhere
CPT/HCPCS: 80048; 81001; 85025; 87086; 87088

== ENCOUNTER → 2022-06-09 13:31 | Outpatient (CLI) | payer MEDICARE, MEDICAID, SELFPAY | PROVIDERS: PCP Internal Medicine Adolescent Medicine; Visit Provider Nurse Practitioner | DX: Z01.810 Encounter for preprocedural cardiovascular examination (principal) | CPT/HCPCS: 93306 ==

== ENCOUNTER → 2022-06-26 16:15 | Outpatient (CLI) | payer MEDICARE, MEDICAID, SELFPAY ==
[2022-06-26 16:38] LABS: Basophils % 0.6 % (0.1-2.0); Eosinophils # 0.1 K/mm3 (0.0-0.4); Hematocrit 38.8 % (42.0-52.0); Hemoglobin 12.4 g/dL (14.1-18.0); Lymphocytes # 1.1 K/mm3 (0.7-4.5); Lymphocytes % 18.2 % (10-50); Mean Corpuscular HGB Conc 31.8 g/dL (31.8-35.4); Mean Corpuscular Volume 94.1 fl (80-94); Mean Platelet Volume 6.9 fl (7.4-10.4); Monocytes # 0.4 K/mm3 (0.1-1.0); Monocytes % 6.2 % (1.7-9.3); Neutrophils # 4.6 K/mm3 (1.8-7.8); Neutrophils % 74.1 % (37.0-80.0); Platelet Count 406 K/mm3 (142-424); Red Blood Count 4.13 M/mm3 (4.60-6.20); Red Cell Distribution Width 13.1 % (11.5-17.5); White Blood Count 6.2 K/mm3 (4.8-10.8)
[2022-06-26 16:45] LABS: Chloride 96 mmol/L (98-107); Potassium 4.7 mmoL/L (3.5-5.1); Sodium 136 mmol/L (136-145)
[2022-06-26 16:48] LABS: Anion Gap 12.7 mEq/L (5-15); Blood Urea Nitrogen 15 mg/dl (9-20); Carbon Dioxide 32 mmol/L (22.0-30.0); Estimated Glomerular Filt Rate 85 ml/min (>60); GFR (African American) 102 ML/MIN (>60); Glucose 111 mg/dl (74-100)
== END ==
PROVIDERS: PCP Nurse Practitioner Family; Visit Provider Nurse Practitioner Family
DX: M62.838 Other muscle spasm (principal); R25.1 Tremor, unspecified
CPT/HCPCS: 80048; 85025

== ENCOUNTER 2022-06-27 09:05 | Emergency (ER) | payer MEDICARE, MEDICAID, SELFPAY ==
[2022-06-27 09:05] VITALS: BP 150/95; PULSE 90; RESP 18; TEMP 36.4; O2SAT 99; BMI 24.4
[2022-06-27 09:30] VITALS: BP 142/91; PULSE 62; O2SAT 99
--- NOTE | 2022-06-27 09:36 | CT_ITS ---
PROCEDURE INFORMATION: Exam: CT Head Without Contrast Exam date and time: 06/27/2022 10:01 AM Age: 67 years old Clinical indication: Injury or trauma; Fall; Blunt trauma (contusions or hematomas); Without loss of consciousness; Additional info: Fall-- laceration to top of his head TECHNIQUE: Imaging protocol: Computed tomography of the head without contrast. Radiation optimization: All CT scans at this facility use at least one of these dose optimization techniques: automated exposure control; mA and/or kV adjustment per patient size (includes targeted exams where dose is matched to clinical indication); or iterative reconstruction. COMPARISON: CT HEAD/BRAIN WO CON 01/28/2022 11:10 AM FINDINGS: Brain: No intra or extra-axial masses, lesions or collections. [place] white matter distinction is maintained throughout the brain. No radiographic evidence of intracranial hemorrhage. No CT evidence of mass hemorrhage or acute infarction. Cerebral ventricles: Ventricles are of normal size and configuration. Paranasal sinuses: Visualized sinuses are unremarkable. No fluid levels. Mastoid air cells: Visualized mastoid air cells are well aerated. Bones/joints: Unremarkable. No acute fracture. Soft tissues: Unremarkable. IMPRESSION: No acute intracranial process is appreciated.
--- NOTE | 2022-06-27 09:36 | CT_ITS ---
PROCEDURE INFORMATION: Exam: CT Cervical Spine Without Contrast Exam date and time: 06/27/2022 10:03 AM Age: 67 years old Clinical indication: Injury or trauma; Fall; Blunt trauma; Prior surgery; Surgery date: 6+ months TECHNIQUE: Imaging protocol: Computed tomography of the cervical spine without contrast. Radiation optimization: All CT scans at this facility use at least one of these dose optimization techniques: automated exposure control; mA and/or kV adjustment per patient size (includes targeted exams where dose is matched to clinical indication); or iterative reconstruction. COMPARISON: CT CERVICAL SPINE WO CON 01/28/2022 11:12 AM FINDINGS: Tubes, catheters and devices: Surgical plate closely opposed to the anterior aspect of the vertebral bodies. C5-C6 Bones/joints: . posterior vertebral line and the spinal laminar line normal. odontoid process normal. no fracture. Straightening and reversal of the normal cervical lordosis. Diffuse degenerative disc disease most pronounced C2-C3, C3-C4 and C4-C5 Lungs: Lung apices are normal. Soft tissues: Unremarkable. IMPRESSION: No fracture.
--- NOTE | 2022-06-27 09:37 | HMH.EDGENADL ---
Discharge Plan Disposition Patient Disposition: Home, Self-Care Condition: Good Chief Complaint: Wound/Laceration Prescriptions Prescriptions: No Action acetaminophen 500 mg capsule 500 mg PO BID atorvastatin 40 mg tablet 20 mg PO DAILY mecobalamin (vitamin B12) 1,000 mcg tablet,chewable 1,000 mcg PO DAILY glycopyrrolate 1 mg tablet 1 mg PO TID oxcarbazepine 150 mg tablet 150 mg PO DAILY lisinopril 20 mg tablet 20 mg PO DAILY thiamine HCl (vitamin B1) 100 mg tablet 100 mg PO DAILY tramadol 50 mg tablet 50 mg PO HS gabapentin 100 mg capsule 100 mg PO BID carbidopa-levodopa 25-100 mg tablet 2 tab PO TID mirtazapine 7.5 mg tablet 7.5 mg PO HS Activity Restrictions/Add. Instructions Additional Instructions/Restrictions: Additional instructions for SCALP LACERATION: Clean the wound daily with soap and water. You may shower and shampoo your hair. Avoid submerging the wound. No swimming.. Apply a thin film of antibiotic ointment such as neosporin, polysporin, or triple antibiotic daily after showering. Be careful when combing or brushing hair so that you so not snag the soto with a comb or brush. Staple removal in 7 days. Return if any signs of infection including increasing pain, pus drainage, swelling, redness, red streaks, or fever. Clinical Impressions Clinical Impression: Laceration of scalp, Facial laceration, Fall Instructions Patient Instructions: DI for Laceration Repair -- Soto, DI for Closed Head Injury Discharge ED Provider: Harry Pantoja General Adult HPI General Chief complaint: Wound/Laceration Stated complaint: fall Time Seen by Provider: 06/27/22 09:30 Mode of Arrival: EMS Source of Information: Patient, EMS and Medical Record Limitations: Physical Limitations Description of Symptoms (Recalled from ER Triage Doc. by RN): c/o small laceration above the left eye and right hand pain. PT states that he was trying to get the remote about 5:45am this morning when he fell and hit the floor, denies any LOC. History of Present Illness HPI narrative: Brought in by ambulance from retirement. Patient says that he fell this morning when trying to get a remote. He has a laceration of his scalp and left supraorbital area. Denies any other injuries. Denies neck pain. custodial staff reported to our staff that the patient fell yesterday and last night. 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 [facility] medical record indicates last tetanus immunization was Tdap 12/07/2017. Related Data Home Medications Medication Instructions Recorded Confirmed acetaminophen 500 mg capsule 500 mg PO BID 12/24/19 06/16/22 atorvastatin 40 mg tablet 20 mg PO DAILY 06/03/22 06/16/22 carbidopa 25 mg-levodopa 100 mg 2 tab PO TID 06/03/22 06/16/22 tablet gabapentin 100 mg capsule 100 mg PO BID 06/03/22 06/16/22 glycopyrrolate 1 mg tablet 1 mg PO TID 06/03/22 06/16/22 lisinopril 20 mg tablet 20 mg PO DAILY 06/03/22 06/16/22 mecobalamin (vitamin B12) 1,000 1,000 mcg PO DAILY 06/03/22 06/16/22 mcg chewable tablet mirtazapine 7.5 mg tablet 7.5 mg PO HS 06/03/22 06/16/22 oxcarbazepine 150 mg tablet 150 mg PO DAILY 06/03/22 06/16/22 thiamine HCl (vitamin B1) 100 mg 100 mg PO DAILY 06/03/22 06/16/22 tablet tramadol 50 mg tablet 50 mg PO HS 06/03/22 06/16/22 Allergies Allergy/AdvReac Type Severity Reaction Status Date / Time No Known Allergies Allergy Verified 06/16/22 14:36 [facility] Disclaimer: The information contained in this section may have been updated after the patient was seen, as this information can be updated by other users. Medical History (Updated 06/27/22 @ 11:04 by Harry Pantoja MD) Encounter for pre-operative cardiovascular clearance HTN (hypertension) with goal to be determined Hyperlipidemia Social History (Reviewed 06/16/22 @ 1
--- NOTE | 2022-06-27 09:38 | XR_ITS ---
PROCEDURE INFORMATION: Exam: XR Chest Exam date and time: 06/27/2022 10:17 AM Age: 67 years old Clinical indication: Injury or trauma; Fall; Blunt trauma (contusions or hematomas) TECHNIQUE: Imaging protocol: Radiologic exam of the chest. Views: 1 view. COMPARISON: CR XR CHEST PORTABLE 11/07/2020 7:11 PM FINDINGS: Lungs: Lungs are well aerated without a focal area of consolidation. Pleural spaces: Unremarkable. No pleural effusion. No pneumothorax. Heart/Mediastinum: Unremarkable. No cardiomegaly. Bones/joints: Prior surgical fixation of the caudal aspect of the cervical spine. IMPRESSION: Lungs are well aerated without a focal area of consolidation.
--- NOTE | 2022-06-27 09:38 | XR_ITS ---
PROCEDURE INFORMATION: Exam: XR Pelvis Exam date and time: 06/27/2022 10:17 AM Age: 67 years old Clinical indication: Injury or trauma; Fall; Blunt trauma (contusions or hematomas); Bilateral; Pelvic region TECHNIQUE: Imaging protocol: Radiologic exam of the pelvis. Views: 1 or 2 view. COMPARISON: CR XR PELVIS 1-2V 10/06/2020 8:20 PM FINDINGS: Bones/joints: osseous structures of the pelvis without an acute process. rami are intact. Sacroiliac joints without separation/diastases/fracture. Iliac bones unremarkable/noncontributory. Degenerative changes within the visualized portions of the caudal aspect of the lumbar spine. Severe degenerative changes within the left hip including joint space narrowing, bony sclerosis, osteophytosis and mild remodeling. Soft tissues: See Bones/joints finding. Other findings: No acute process IMPRESSION: Severe degenerative changes within the left hip including joint space narrowing, bony sclerosis, osteophytosis and mild remodeling. No acute process
--- NOTE | 2022-06-27 10:19 | PC.NURSE ---
pt kept moving and sliding down in the bed. Had to keep going in and scooting him back up, pt wouldnt lay still very long for a period of time.
[2022-06-27 10:31] VITALS: BP 143/93; PULSE 79; O2SAT 100
--- NOTE | 2022-06-27 11:00 | PC.NURSE ---
pt brief and linens changed. pt tolerated well
--- NOTE | 2022-06-27 11:08 | PC.NURSE ---
attempted to call report to the [facility] x3. no answer
[2022-06-27 12:42] VITALS: BP 138/87; PULSE 81; RESP 20; TEMP 36.4; O2SAT 100
== END 2022-06-27 11:18 | disposition home or self-care (01) ==
PROVIDERS: Emergency Provider Emergency Medicine
DX: S01.112A Laceration without foreign body of left eyelid and periocular area, initial encounter (principal); S01.01XA Laceration without foreign body of scalp, initial encounter; S61.411A Laceration without foreign body of right hand, initial encounter; I10 Essential (primary) hypertension; E78.5 Hyperlipidemia, unspecified; N40.1 Benign prostatic hyperplasia with lower urinary tract symptoms; R47.1 Dysarthria and anarthria; G25.81 Restless legs syndrome; E53.8 Deficiency of other specified B group vitamins; E46 Unspecified protein-calorie malnutrition; Z68.24 Body mass index [BMI] 24.0-24.9, adult; Z79.1 Long term (current) use of non-steroidal anti-inflammatories (NSAID); Z79.899 Other long term (current) drug therapy; Z96.651 Presence of right artificial knee joint; W19.XXXA Unspecified fall, initial encounter
CPT/HCPCS: 12002; 70450; 71045; 72125; 72170; 99285

== ENCOUNTER 2022-07-06 12:57 | Outpatient (RCR) | payer MEDICARE, MEDICAID, SELFPAY ==
--- NOTE | 2022-07-07 08:33 | HMH.SLDYSPHA ---
Speech & Language Evaluation Speech/Language Dysphagia Evaluation Start: 07/07/22 07:58 Freq: ONCE Status: Active Protocol: Document 07/06/22 16:00 NATE (Rec: 07/07/22 08:32 [id number] Dysphagia Assess/Goals/Plan Assessment Date of Evaluation: 07/07/22 Evaluation Type Initial Certification Assessment/Problems Pt was assessed at [facility] at this date per MD order 2' dysphagia concerns. Does Patient Qualify for Service Yes Qualify/Failure Comment Based on clinical swallow evaluation results and clinical observation, pt would benefit from further instrumental testing. MBSS is recommended. Recommendations PHYSICIAN CERTIFICATION: The specified therapy services are required, authorized, and reviewed every 30 days. Diet Recommendations Pureed Liquid Type Recommendations [place] Consistency SL Swallow Guidelines High aspiration risk Crush Meds Crush all meds Dysphagia Swallow Precautions/Strategies Sitting Upright (90 deg),No Straw,Small Bites and Sips, Alternate Liquids/Solids Comment Pt would benefit from instrumental testing of MBSS to fully assess phases of the swallow 2' observed difficulty and need for consistent cues to swallow. Plan Pt/Guardian verbally ack understanding Yes of dx/prognosis/goals G -code Required No STG-Other Comment/Non-Specific Pt will complete further instrumental testing by MBSS following PEG procedure. Drip Box Tender Goals Pt will maintain nutrition/hydration via Yes: pt is receiving PEG alternative means Education Instructions provided Discussed with caregiver and pt the results of the clinical swallow evaluation, need for MBSS/further instrumental assessment, and diet recommendations who expresssed understanding. [employer] also called MD curriculum assistant principal and requested order for MBSS for pt following PEG procedure . Pt/Caregiver able to recall information Able to recall/restate Reinforcement needed No Speech & Language HPI History Present Illness Description of Patient Problem
== END 2022-07-06 12:59 | disposition home or self-care (01) ==
LOC: ST 12:57
PROVIDERS: Visit Provider Surgery
DX: R13.10 Dysphagia, unspecified (principal)
CPT/HCPCS: 92610

== ENCOUNTER 2022-07-08 12:53 | Inpatient (IN) | payer MEDICARE, MEDICAID, SELFPAY ==
[2022-07-06 10:05] VITALS: BMI 19.0
--- NOTE | 2022-07-07 08:23 | SUR.PREOP ---
TC to VICENTE Hinojosa at [facility] to clarify if the pt has ability to sign own consent for peg placement scheduled for tomorrow, 07-08-22. VICENTE says that pt is able to sign own consent. Scored 12 on BIMS score. Micaela says Dr. Casillas said pt was ok to sign consent when discussed with at [facility]. Lilibeth Gudino concrete saw operator notified of above. Dr. Maya ok with pt signing own consent.
[2022-07-08] VITALS (26 sets, daily range): BP systolic 103–174; BP diastolic 69–102; PULSE 57–81; RESP 16–23; TEMP 36.1–43; O2SAT 95–100; BMI 18.8
--- NOTE | 2022-07-08 11:40 | P.PN_ITS ---
[facility] Disclaimer: The information contained in this section may have been updated after the patient was seen, as this information can be updated by other users. Medical History BPH with obstruction/lower urinary tract symptoms Dysarthria and anarthria Encounter for pre-operative cardiovascular clearance HTN (hypertension) with goal to be determined Hyperlipidemia Obesity Progressive supranuclear ophthalmoplegia [[id number]] Protein-calorie malnutrition Repeated falls Restless leg syndrome Urinary tract infection Vitamin B12 deficiency Surgical History History of left knee replacement Family History (Updated 07/08/22 @ 11:15 by Abel Hernández RN) Other No significant family history Social History Smoking Status: Unknown if ever smoked alcohol intake: never substance use type: denies use current occupational status: disabled Travel in the last 8 weeks: None housing: senior care [facility] Anesthesia Checklist Patient Identification Patient Identification: Arm Band Structural Data Admitted From: Long-term Nursing Facility Planned Operative Procedure/s: PEG Tube Placement Consent for Planned Operative Procedure(s) Verified: Yes Verified Documents: Surgical Consent and History and Physical NPO Status Verified Time NPO: 00:00 Additional verifications Anesthesia Reactions: No Airway Assessment C-Spine Mobility Assessed: Yes TMJ Mobility Assessed: Yes Dentition: Good Dentition Neurological Assessment Level of Consciousness: Awake and Alert Anesthesia Plan Anesthesia Risk discussed: Yes Anesthesia Plan: Verified ASA Class: III Anesthesia Type: MAC
--- NOTE | 2022-07-08 12:26 | EXP.GEN.HP ---
HPI HPI HPI: This is a 67-year-old gentleman who presents for percutaneous endoscopic gastrostomy tube. Repeat dysphagia evaluation completed earlier this week confirmed persistent impairment. Recommendations for completion modified barium swallow after PEG placement were made. Forwarded from office visit dated June 30, 2022: This is a 67-year-old gentleman seen in consultation from his primary care provider for gastrostomy tube placement.? He was initially scheduled to undergo percutaneous gastrostomy tube at [facility]; however, his procedure was postponed/canceled secondary to temporary absence of surgical coverage. Reportedly, a modified barium swallow has been performed but was quite a while ago . He has seemingly been suffering from increasing dysphagia and has lost approximately 200 pounds over the past number of months . [facility] Disclaimer: The information contained in this section may have been updated after the patient was seen, as this information can be updated by other users. Medical History BPH with obstruction/lower urinary tract symptoms Dysarthria and anarthria Encounter for pre-operative cardiovascular clearance HTN (hypertension) with goal to be determined Hyperlipidemia Obesity Progressive supranuclear ophthalmoplegia [[id number]] Protein-calorie malnutrition Repeated falls Restless leg syndrome Urinary tract infection Vitamin B12 deficiency Surgical History History of left knee replacement Family History (Updated 07/08/22 @ 11:15 by Abel Hernández RN) No significant family history Social History Smoking Status: Unknown if ever smoked alcohol intake: never substance use type: denies use current occupational status: disabled Travel in the last 8 weeks: None housing: jail Meds Home Medications and Allergies Home Medications Medication Instructions Recorded Confirmed Type acetaminophen 500 mg capsule 500 mg PO BID PRN Mild Pain (Scale 12/24/19 07/06/22 History Score 1-4) atorvastatin 40 mg tablet 20 mg PO DAILY Cholesterol 06/03/22 07/06/22 History carbidopa 25 mg-levodopa 100 mg 2 tab PO TID opthalmoplegia 06/03/22 07/06/22 History tablet gabapentin 100 mg capsule 100 mg PO BID leg pain 06/03/22 07/06/22 History glycopyrrolate 1 mg tablet 1 mg PO TID increased secretions 06/03/22 07/06/22 History lisinopril 20 mg tablet 20 mg PO DAILY BP 06/03/22 07/06/22 History mecobalamin (vitamin B12) 1,000 1,000 mcg PO DAILY Supplement 06/03/22 07/06/22 History mcg chewable tablet mirtazapine 7.5 mg tablet 7.5 mg PO HS Depression 06/03/22 07/06/22 History oxcarbazepine 150 mg tablet 150 mg PO BID dementia 06/03/22 07/06/22 History thiamine HCl (vitamin B1) 100 mg 100 mg PO BID Supplement 06/03/22 07/06/22 History tablet tramadol 50 mg tablet 50 mg PO BID arthritis pain 06/03/22 07/06/22 History carboxymethylcellulose sodium 1 % 1 drp ophthalmic (eye) 12 dry eyes 07/06/22 07/06/22 History eye liquid gel drops carboxymethylcellulose sodium 1 % 1 drp ophthalmic (eye) QID dry eyes 07/06/22 07/06/22 History eye liquid gel drops diclofenac sodium 1 % topical gel 2 g topical QID PRN hand/shoulder 07/06/22 07/06/22 History pain guaifenesin 50 mg/5 mL oral liquid 200 mg PO Q6HP PRN Cough 07/06/22 07/06/22 History New Prescriptions to Start Prescriptions: Allergies Allergy/AdvReac Type Severity Reaction Status Date / Time No Known Allergies Allergy Verified 07/06/22 10:19 Exam Data for Last 24 hours Vital signs and Labs for Last 24 Hours: Temp Pulse Resp BP Pulse Ox 97.0 F L 60 18 138/98 H 98 07/08/22 11:15 07/08/22 11:15 07/08/22 11:15 07/08/22 11:15 07/08/22 11:15 I & O for Last 24 hours: In
--- NOTE | 2022-07-08 13:10 | HMH.SCOPE ---
Procedure: Date: 07/08/22 Patient Date of :: 1955 Procedure Performed:: Percutaneous endoscopic gastrostomy tube Indications:: Feeding difficulty Performing Provider:: Zach Maya MD Referring Provider:: . Sedation:: Monitored anesthesia care Procedure:: After informed consent was obtained the patient was taken to the endoscopy suite. The patient was maintained in the supine position. Monitored anesthesia care ensued. Pulse, blood pressure, and oxygen saturation were monitored throughout the procedure. The endoscope was advanced into the gastric lumen. Transillumination and impulse both noted. The point of maximal impulse and transillumination was marked. The upper abdomen was prepped and draped in a sterile fashion. After infiltration local anesthetic a small transverse incision was made directly over the site of maximal impulse/transillumination. A large bore Angiocath was placed in position under direct visualization. The guidewire was placed into the gastric lumen through the catheter and retrieved via snare. The feeding tube was secured to the guidewire and it was then maneuvered into appropriate position in the gastric lumen. The feeding tube was secured at just over 2 cm. The abdominal binder was placed in position. The gastroscope was readvanced. The bumper was in good position. The tube easily rotated. The endoscope was removed and the patient was then transferred to recovery in stable condition. Findings:: Gastrostomy tube anchored just beyond 2 cm Specimens:: None Recommendations:: Post-PEG orders written Complications:: No immediate Estimated blood obtained (mL): 5
--- NOTE | 2022-07-08 13:52 | PC.NURSE ---
Pt arrived to the floor at this time
--- NOTE | 2022-07-08 14:47 | DIET.NUTRFU ---
RD consulted to start TF post 4hours after PEG placed. Patient has hx of dyphagia, had bedsideswa llk
--- NOTE | 2022-07-08 14:48 | DIET.NUTRFU ---
RD consulted for TF to start 4 hours post PEG placement. Patient is from [place] and has a hx of dysphasia. Bedside swallow study preformed today and recommended pureed with nectar thick liquids and no straws. They also recommended MBSS post sx. Patient reported a 200# wt loss, according to our records he has lost 50# since July on 06/27. He is on remeron which may cause increase in appetite. Currently on IVF for hydration, once up to goal rate in TF IVF should be discontinued. Admitting labs hydration was WNL. Start TF: Jevity 1.2 at 20ml increase to 60ml/fwa=8222wr/1728kcal/80gm protein and 1162ml free water, flush with 120ml A6d=884zy+1882ml/day this would provide 100% nutritional needs at 1600-1700kcal/70-80gm protein and 1900ml/day
--- NOTE | 2022-07-08 14:49 | PC.NURSE ---
SPOKE WITH ETHAN FARLEY AT [facility] REGARDING PT, SHE STATES PT IS ALERT X2-3 ON GOOD DAYS, SAYS PT IS INTERMITTENTLY CONFUSED. PT WILL TALK, ITS JUST HARD TO UNDERSTAND AT TIMES. PT IS FALL RISK, FALLS FREQUENTLY AT THE [facility]. PT DOES NOT WALK, 1-2 ASSIST FOR TRANSFERS. SINCE PT HAS CAME TO ME HE HAS NOT BEEN ABLE TO ANSWER QUESTIONS, OR GIVEN ANY VERBAL RESPONSE. PT DROOLING. CALLED DOWN TO PACU REGARDING PT, ADVISED, PT WAS GIVEN KETAMINE POSTOP. TEMP ON THE LOW SIDE OF 97.5 AX, OTHER VSS. WILL CONT TO MONITOR TEMP. WARM BLANKETS APPLIED. BED ALARM ON FOR PT SAFETY.
--- NOTE | 2022-07-08 19:00 | PC.NURSE ---
it was noted upon start of shift that pt had pulled recently place peg tube out, emelia notified dr. lopez., plan to take pt back to surgery, pt is unable to confirm orientation, pt is only able to state name, consent was obtained via telephone from pts next of kin, father,
--- NOTE | 2022-07-08 19:10 | PC.NURSE ---
PT PULLED IV OUT OF RT AC. NEW 20G IV PLACED IN LT HAND (LT SIDE PER PTS REQUEST). PT C/O PAIN, TREATED PER SEP. NO RESIDUAL OR COULD NOT HERAR FOR PLACEMENT OF PEG TUBE, DR DIGGS CALLED. CATERINA SAID TUBE ANCHORED AT 2 CM AND SHOULD BE ABLE TO ROTATE EASILY, BOTH WERE ESTABLISH. TUBE FEEDING STARTED PER ORDER. NO COMPLICATIONS AT THIS TIME. VSS.
--- NOTE | 2022-07-08 19:21 | PC.NURSE ---
PT TORE ABD BINDER OFF AND PULLED PEG TUBE OUT. ALLRAN NOTIFIED.
--- NOTE | 2022-07-08 20:01 | EXP.SURG.PN ---
Subjective Narrative: Called by nursing staff that the patient had pulled his newly placed PEG tube out despite having an abdominal binder and mittens. Exam Data for Last 24 hours Vital signs and Labs for Last 24 Hours: Temp Pulse Resp BP Pulse Ox 98.7 F 61 18 163/77 H 100 07/08/22 17:45 07/08/22 17:45 07/08/22 17:45 07/08/22 17:45 07/08/22 17:45 I & O for Last 24 hours: Intake & Output 07/06/22 07/07/22 07/08/22 07/09/22 11:59 11:59 11:59 11:59 Weight 140 lb 6 oz 138 lb 14.259 oz *Routine Abdominal Exam Abdominal: Present soft Comments: Fresh PEG tube site in the epigastrium Progress Note: A&P Assessment and plan (1) Feeding difficulty: Status: Acute Assessment and plan: Needs emergent laparotomy for possible repair of gastrotomy site with possible placement of open gastrostomy tube. Concern from nursing standpoint relayed from the custodial is that with replaced gastrostomy tube he will continue to pull it out.
--- NOTE | 2022-07-08 20:36 | PC.NURSE ---
Pt down to surgery 2035.
--- NOTE | 2022-07-08 20:42 | PC.NURSE ---
Brittaney requesting sx team called in at 1941. Received call back from SHELBI Patiño, Amy,RN, and PatsyRN by 1945. MD Brittaney at bedside at 2014, verbal order for NG tube to be placed. 2024- Attempted 16f NG [place] sump by this RN. Resistance and pt being somewhat uncooperative leaf to using a 12f [place] Sump NG in right nare. Secured at 60cm. 2027-SHELBI Patiño at bedside with pt.
--- NOTE | 2022-07-08 21:55 | P.OP_ITS ---
Date of procedure: 07/08/22 Pre-op Diagnosis:: Dislodged recently placed percutaneous endoscopic gastrostomy tube Post-op Diagnosis:: Same Procedure performed:: Exploratory laparotomy, open gastrostomy tube placement with 20 Solomon Islander balloon g astrostomy tube Surgeon:: Alex Quispe MD PSYCHOLOGY PHYSICIAN:: Justo Monge Anesthesia: GETAngely Estimated blood loss (mL): 10 Clinical Note:: Patient is a 67-year-old male who underwent a gastrostomy tube placement percutaneously earlier this afternoon by Dr. Maya. Despite precautions patient reportedly pulled out the tube this evening and surgeon debone supervisor was contacted at 7:35 PM by the nursing staff. Arrangements were made for emergent operative intervention for acute dislodgment of newly placed gastrostomy tube. Operative findings:: Patient had a clean gastrotomy site in the mid body of the stomach along the greater curvature. There was minimal if any intra-abdominal contamination at this early phase. Operative note:: Patient was taken emergently to the operating room. He was positioned in supine position. General anesthesia was induced via endotracheal tube. Abdomen was prepped and draped in the standard surgical fashion. Upper midline laparotomy incision was made. Dissection was carried down through subcutaneous tissues. Fascia was incised. Peritoneum was incised. There was some intra-abdominal air. There was no evidence of any gross gastric contamination. Stomach was grasped with Cassius. Ultimately the gastrotomy site was identified at near the greater curvature in the mid body of the stomach. This was rather clean without significant gastric spillage. Through a separate incision in the left upper abdomen 20 [place] Islander Kangaroo balloon type gastrostomy tube was inserted through the abdominal wall. It was manipulated into the gastric lumen and the balloon was inflated with 15 mL of saline. The stomach was then sutured to the anterior abdominal wall with multiple interrupted 3-0 Nurolon gastric seromuscular sutures to the anterior abdominal wall. Catheter was noted to be mobile. The bumper was secured at approximately the 2 cm stephanie. Peritoneal cavity was then thoroughly irrigated with saline and aspirated until clear. Please note that the gastrostomy tube was flushed with saline and then aspirated with return of gastric contents. There was no evidence of any leakage around the tube gas trostomy site. There was good hemostasis. Fascia was closed with running #1 Prolene x2. Subcutaneous tissues were irrigated. Skin was closed with soto. A single 0 Prolene suture was placed in the skin at the PEG tube site securing the bumper and securing the bumper to the tube itself. Clean dry sterile dressing was applied. Condition: stable Disposition: PACU Complications:: None immediately apparent
--- NOTE | 2022-07-08 22:08 | EXP.ANES.CKL ---
[facility] Disclaimer: The information contained in this section may have been updated after the patient was seen, as this information can be updated by other users. Medical History BPH with obstruction/lower urinary tract symptoms Dysarthria and anarthria Encounter for pre-operative cardiovascular clearance HTN (hypertension) with goal to be determined Hyperlipidemia Obesity Progressive supranuclear ophthalmoplegia [[id number]] Protein-calorie malnutrition Repeated falls Restless leg syndrome Urinary tract infection Vitamin B12 deficiency Surgical History History of left knee replacement Family History Other No significant family history Social History Smoking Status: Unknown if ever smoked alcohol intake: never substance use type: denies use current occupational status: disabled Travel in the last 8 weeks: None housing: snf [facility] Anesthesia Checklist Patient Identification Patient Identification: Arm Band Structural Data Admitted From: Inpatient Planned Operative Procedure/s: Exploratory Laparotomy Consent for Planned Operative Procedure(s) Verified: Yes Verified Documents: Surgical Consent and History and Physical NPO Status Verified Time NPO: 00:00 Additional verifications Anesthesia Reactions: No Airway Assessment C-Spine Mobility Assessed: Yes TMJ Mobility Assessed: Yes Dentition: Good Dentition Neurological Assessment Level of Consciousness: Awake and Restless Anesthesia Plan Anesthesia Risk discussed: Yes Anesthesia Plan: Verified ASA Class: III (E) Anesthesia Type: General
--- NOTE | 2022-07-08 22:09 | EXP.ANES.I ---
[facility] Anesthesia Record Part I Anesthesia Record I Intake, IV Amount: 1,000 Estimated blood loss (mL): 10 Urine output (mL): 50 Blood Products used (#): none Blood Pressure: 164/92 SaO2: 96 Pulse Rate: 72 Respiratory Rate: 16 Temperature: 97.5 F Patient is:: Drowsy and Stable Stable to PACU at:: 22:05
--- NOTE | 2022-07-08 22:39 | PC.NURSE ---
pt back from surgery @ 2611.
--- NOTE | 2022-07-08 22:49 | SUR.PHASEI ---
late entry 2204- Pt in pacu at this time. Mittens on hands to prevent pulling at peg tube. CTM, no skin redness/breakdown noted. 20french gastrostomy tube in place. Dressings CDI. CTM 2233- detailed report called to kajal villareal 223- pt left in stable condition with kajal villareal in pt room. Bed rails up with bed in lowest position. Abdominal binder in place, dressings CDI. Mittens remain on hands at this time.
[2022-07-09] VITALS (13 sets, daily range): BP systolic 128–165; BP diastolic 41–98; PULSE 56–87; RESP 16–22; TEMP 36.6–36.9; O2SAT 94–100; BMI 19.1
--- NOTE | 2022-07-09 06:21 | PC.NURSE ---
pt with tech at bedside for 1:1; vss, abdominal binder in place over dressing, small incision to abd noted, g tube site dressing with small amount of bloody drainage noted. pt is unable to answer orientation questions, pt only says kiersten when asked, pt restless and attempts to pull at gown and tubes and climb out of bed, pt medicated with morphine x3 doses for restlessness and moaning, when pt asked if he is hurting, pt states yes, no acute distress, spoke with london mcfadden aprn regarding npo order and tube feeding to resume, london mcfadden stated to wait for GS rounds before beginning.
--- NOTE | 2022-07-09 06:29 | EXP.SURG.PN ---
Subjective Narrative: Patient underwent exploratory laparotomy in the evening due to pulling newly placed PEG tube. Patient has had a one-on-one sitter overnight. Rested well. Has not pulled gastrostomy tube. Exam Data for Last 24 hours Vital signs and Labs for Last 24 Hours: Temp Pulse Resp BP Pulse Ox 98.2 F 61 20 155/93 H 97 07/09/22 01:30 07/09/22 04:45 07/09/22 04:45 07/09/22 04:45 07/09/22 04:45 I & O for Last 24 hours: Intake & Output 07/06/22 07/07/22 07/08/22 07/09/22 11:59 11:59 11:59 11:59 Intake Total 1895 / 1895 Output Total 0 / 0 Balance 1895 / 1895 Weight 140 lb 6 oz 141 lb 1.533 oz Constitutional Constitutional: no acute distress Progress Note: A&P Assessment and plan (1) Feeding difficulty: Status: Acute Assessment and plan: We will start with using gastrostomy tube for medications if needed.
--- NOTE | 2022-07-09 07:32 | P.PNANES_ITS ---
[facility] Anesthesia Record Part II Anesthesia Record Part II Discharge Time: 22:35 Destination: Medical Surgical Department PACU nurse assessment reviewed?: Yes Patient Condition:: Good Anesthesia Complications:: None Swallowing reflex intact?: Yes Cyanosis?: No Blood Pressure: 148/98 Pulse Rate: 81 Temperature: 98 F Mental Status: Alert & Oriented Pain level:: 0 Nausea and/or vomitting:: None Intake, IV Amount: 0
--- NOTE | 2022-07-09 12:06 | P.CONPHA_ITS ---
Pharmacy Intervention Comments: MEDICATION RECONCILIATION COMPLETED ON PATIENT USING MAR FROM [facility]. -ALEA BOLTON, SULEM[place]
--- NOTE | 2022-07-09 12:06 | HMH.PHAINT1 ---
Pharmacy Intervention Comments: MEDICATION RECONCILIATION COMPLETED ON PATIENT USING MAR FROM [facility]. -ALEA BOLTON, SULEMAD
--- NOTE | 2022-07-09 12:19 | SW/DCPLANNER ---
This patient currently resides at [facility]. I will continue to follow up with Alfreda until patient is medically stable for discharge. Discharge date is unknown at this time.
[2022-07-09 13:43] LABS: Coronavirus 19, PCR Not Detected (NotDetected); Influenza A, PCR Not Detected (NotDetected); Influenza B, PCR Not Detected (NotDetected)
--- NOTE | 2022-07-09 13:45 | DIET.NUTRFU ---
Addendum entered by Kim Fabian RD, LD 07/09/22 14:53: Spoke to nursing and provider wants to hold off on TF until tomorrow. TF order in when ready to start. Plan is to discharge back to when ready and follow-up with CATERING ADMINISTRATIVE ASSISTANT as outpatient in aprox 1 week[address] Apt for MBSS was already scheduled prior to admit. Oral will be for pleasure and TF for maintenance needs. Original Note: PEG placed 1/5, then pulled out during night. Patient has been restless and pulled out IV also. He now has new PEG s/p exploratory laparotomy last night. Currently only using PEG for medication, nursing was going to consult sx on when it would be feasible to start TF. TF order is already in, he received minimal amount 1/4 prior to pulling out. No new labs to review, home medications started and NaCl in place for hydration. Left message for CATERING ADMINISTRATIVE ASSISTANT to determine if MBSS was scheduled/appropriate.
--- NOTE | 2022-07-09 13:57 | EXP.MED.CON ---
History of Present Illness *Admission Date: 07/08/22 *Reason for visit:: Consulted for medical management *History of present illness: This is a 67-year-old gentleman who presents for percutaneous endoscopic gastrostomy tube. Repeat dysphagia evaluation completed earlier this week confirmed persistent impairment. Recommendations for completion modified barium swallow after PEG placement were made. Forwarded from office visit dated June 30, 2022: This is a 67-year-old gentleman seen in consultation from his primary care provider for gastrostomy tube placement.? He was initially scheduled to undergo percutaneous gastrostomy tube at [facility]; however, his procedure was postponed/canceled secondary to temporary absence of surgical coverage. Reportedly, a modified barium swallow has been performed but was quite a while ago . He has seemingly been suffering from increasing dysphagia and has lost approximately 200 pounds over the past number of months . Above note per surgical H&P. Some details need more discussion-patient is a longtime patient of the [facility] who has been cachectic and it neurologically impaired for several years, not months. He has a degenerative neurologic condition most clinically relevant to supranuclear palsy and follows with [facility]. He however is alert and oriented x3 and after several discussions with him on her [facility] rounds, the process of PEG placement was undertaken as noted above. Apparently had the PEG put in on admission. However was pulled out by patient after he had altered mental status. Taken back to the OR another PEG was put in. He is now on second floor with one-on-one care and an abdominal binder to try to make sure this does not happen again. [facility] Disclaimer: The information contained in this section may have been updated after the patient was seen, as this information can be updated by other users. Medical History (Updated 07/09/22 @ 14:04 by Manuel Casillas MD) BPH with obstruction/lower urinary tract symptoms Dysarthria and anarthria Encounter for pre-operative cardiovascular clearance HTN (hypertension) with goal to be determined Hyperlipidemia Obesity Progressive supranuclear ophthalmoplegia [Eriberto] Protein-calorie malnutrition Repeated falls Restless leg syndrome Urinary tract infection Vitamin B12 deficiency Surgical History History of left knee replacement Family History No significant family history Social History Smoking Status: Unknown if ever smoked alcohol intake: never substance use type: denies use current occupational status: disabled Travel in the last 8 weeks: None housing: [facility] Review of Systems Review of Systems Review of systems:: unable to obtain and pertinent systems reviewed and negative unless documented below Exam Data for Last 24 hours Vital signs and Labs for Last 24 Hours: Temp Pulse Resp BP Pulse Ox 97.9 F 66 18 152/87 H 94 L 07/09/22 12:12 07/09/22 12:12 07/09/22 12:12 07/09/22 12:12 07/09/22 12:12 I & O for Last 24 hours: Intake & Output 07/07/22 07/08/22 07/09/22 07/10/22 11:59 11:59 11:59 11:59 Intake Total 1895 / 1895 Output Total 0 / 0 Balance 1895 / 1895 Weight 141 lb 1.533 oz Constitutional Constitutional: no acute distress, thin and chronically ill appearing *Routine HEENT Exam Head: Present normocephalic Eye: Present EOMI ENT: Present mucous membranes moist *Routine Neck Exam Neck: Present supple *Routine Respiratory Exam Respiratory: Present CTA bilaterally *Routine Cardiovascular Exam Cardiovascular: Present RRR *Routine Abdominal Exam Comments: Abdominal binder in place. G-tube site looks good. *Rou
--- NOTE | 2022-07-09 17:31 | PC.NURSE ---
PT IS RESTING IN BED WITH STAFF AT BEDSIDE. PT HAS BEEN VERY RESTLESS T/O THE SHIFT. PEG TUBE NOTED TO THE ABDOMEN WITH DRESSING C/D/I. PT WILL ANSWER QUESTIONS AND FOLLOW COMMANDS HOWEVER HAS REALLY MUMBLED SPEECH WHICH MAKES IT DIFFICULT TO UNDERSTAND. LUNG SOUNDS CLEAR. ABDOMEN SOFT/NON TENDER WITH HYPOACTIVE BOWEL SOUNDS. WILL CONTINUE TO MONITOR.
--- NOTE | 2022-07-09 21:37 | PC.NURSE ---
He responds to his name and is able to tell you his first name but his speech is mumbled and difficult to understand. He has staff in his room while awake. Frequent shifting in bed. Abdominal binder in place. G-tube placement verified via auscultation. He continues on RA. He reported pain in his legs.
[2022-07-10 03:47] VITALS: BP 144/87; PULSE 69; RESP 16; TEMP 36.7; O2SAT 100
[2022-07-10 04:00] VITALS: BMI 19.6
--- NOTE | 2022-07-10 06:00 | EXP.SURG.PN ---
Subjective Narrative: No major issues. Per staff patient has been restless . Does have sitter present Exam Data for Last 24 hours Vital signs and Labs for Last 24 Hours: Temp Pulse Resp BP Pulse Ox 98.1 F 69 16 144/87 H 100 07/10/22 03:47 07/10/22 03:47 07/10/22 03:47 07/10/22 03:47 07/10/22 03:47 Laboratory Results - last 24 hr 07/09/22 10:00: SARS-CoV-2 (PCR) Not detected, Influenza A Untype (PCR) Not detected, Influenza Type B (PCR) Not detected I & O for Last 24 hours: Intake & Output 07/07/22 07/08/22 07/09/22 07/10/22 11:59 11:59 11:59 11:59 Intake Total 1894 / 1894 Output Total 0 / 0 0 / 0 Balance 1894 / 1894 Weight 141 lb 1.533 oz 145 lb *Routine Abdominal Exam Abdominal: Present soft Comments: Gastrostomy tube stable and intact Progress Note: A&P Assessment and plan (1) Feeding difficulty: Status: Acute Assessment and plan: Okay to start feeds as previously ordered. Would be ready for discharge likely tomorrow potentially. (2) Supranuclear palsy: Status: Acute
[2022-07-10 08:00] VITALS: BP 160/60; PULSE 56; RESP 18; TEMP 36.7; O2SAT 100
--- NOTE | 2022-07-10 08:53 | EXP.ACUTE.PN ---
Subjective *Date: 07/10/22 *Time: 08:53 Interval history: Internal medicine consult follow-up note: Patient did well overnight, slept well, tube feedings were initiated well. Nursing staff and nursing aides report that he is much Colmer and although he has been somewhat fidgety he is back to his baseline that was reported from the detention is not try to pull out his tube. Medical Exam Vital signs and Labs for Last 24 Hours: Vital Signs Temp Pulse Resp BP Pulse Ox 07/10/22 08:00 98.0 F 56 L 18 160/60 H 100 07/10/22 03:47 98.1 F 69 16 144/87 H 100 07/09/22 20:00 100 07/09/22 19:19 97.8 F 67 16 141/74 H 100 07/09/22 16:02 98.0 F 56 L 20 151/79 H 99 07/09/22 12:12 97.9 F 66 18 152/87 H 94 L Intake and Output 07/09/22 07/10/22 07/10/22 19:59 03:59 11:59 Intake Total 1917 Output Total 0 / 0 Balance 1917 Intake: Intake, Total IV Amount 1917 0.9 % Sodium Chloride 1,000 ml 1917 @ 75 mls/hr IV .[id number] [facility] Rx# :[id number] Output: Output, Urine Amount 0 / 0 Other: Number of Voids 0 Number of Unmeasured Voids 4 1 Weight 145 lb Patient Weight 07/10/22 11:59 Weight 145 lb Laboratory Results - last 24 hr 07/09/22 10:00: SARS-CoV-2 (PCR) Not detected, Influenza A Untype (PCR) Not detected, Influenza Type B (PCR) Not detected I & O for Labs for Last 24 Hours: Intake & Output 07/07/22 07/08/22 07/09/22 07/10/22 11:59 11:59 11:59 11:59 Intake Total 1894 Output Total 0 / 0 0 / 0 Balance 1894 Weight 141 lb 1.533 oz 145 lb Comment:: Responsive. Good air movement. Heart rate regular. Neurologic exam unchanged, G-tube site looks good Assessment and Plan *Assessment and plan (1) Feeding difficulty: Status: Acute Category: Medical Code(s): R63.30 - Feeding difficulties, unspecified (2) Supranuclear palsy: Status: Acute Category: Medical Code(s): G23.1 - Progressive supranuclear ophthalmoplegia [Ford] Plan Appreciate surgical input and procedure done yesterday. overall patient is doing well. Appears to be less likely to pull his tube out. If okay with surgery I am fine with discharging patient back to the [facility] specialty [facility]. We will be following him there on our service.
[2022-07-10 10:44] LABS: Microscopic,Cath URINE MICROSCOPIC (MICROSCOPIC)
[2022-07-10 11:09] LABS: Appearance,Urine/Cath CLEAR (Clear); Bilirubin,Cath Negative (Negative); Blood, Urine/Cath Negative (Negative); Color,Urine/Cath YELLOW (Yellow); Glucose,Urine/Cath (UA) Negative (Negative); Ketones,Urine/Cath TRACE (Negative); Leukocyte Esterase,Cath Negative (Negative); Nitrate,Cath Negative (Negative); Protein,Urine/Cath Negative (Negative); Urobilinogen,Cath 0.2 EU/dl (0.2)
[2022-07-10 11:29] LABS: Squamous Epithelial Ur./Cath Occasional #/hpf (0-5); WBC,Urine/Cath Occasional #/hpf (0-3)
[2022-07-10 16:04] VITALS: BP 148/82; PULSE 46; RESP 18; TEMP 36.7; O2SAT 98
--- NOTE | 2022-07-10 18:31 | PC.NURSE ---
Pt has been A&Ox4 this shift, with random bouts of confusion noted. He has been very restless, but easy to redirect. Mitts remain on to prevent pt from pulling g-tube. Gastric aspirations have been 0-5mL this shift, tube feed continues on continuous and has been increased to 40mL/hr. Purewick on pt, urine is cloudy and dark yellow in color. Pt is incontinent of bowel and bladder. [place] has called today for updates, custodial is anticipating pt to discharge back tomorrow. No other acute changes or complaints.
[2022-07-10 19:33] VITALS: BP 157/86; PULSE 63; RESP 18; TEMP 36.3; O2SAT 100
[2022-07-10 20:00] VITALS: O2SAT 100
--- NOTE | 2022-07-10 21:22 | PC.NURSE ---
He is alert and oriented but his speech is difficult to understand because it is mumbled. He continues with Jevity 1.2 tube feedings. His residual was 15 @ 2000. HOB elevated. G-tube placement verified via auscultation. He has a male purewick in place. His urine is yellow, clear. Abdominal binder in place. Mittens on at this time. Safety set and call light within reach.
[2022-07-11 04:00] VITALS: BP 121/76; PULSE 52; RESP 16; TEMP 36.6; O2SAT 96; BMI 18.8
[2022-07-11 08:00] VITALS: BP 157/82; PULSE 50; RESP 18; TEMP 36.6; O2SAT 100; O2SAT 95
--- NOTE | 2022-07-11 09:27 | P.PN_ITS ---
Subjective Narrative: No issues. Patient tolerating tube feeds at goal with no significant residuals. Exam Data for Last 24 hours Vital signs and Labs for Last 24 Hours: Temp Pulse Resp BP Pulse Ox 97.9 F 50 L 18 157/82 H 95 07/11/22 08:00 07/11/22 08:00 07/11/22 08:00 07/11/22 08:00 07/11/22 08:00 Laboratory Results - last 24 hr 07/08/22 10:28: Urine Color Yellow, Urine Appearance Clear, Urine pH 7.0, Ur Specific Benedict 1.010, Urine Protein Negative, Urine Glucose (UA) Negative, Urine Ketones Trace, Urine Blood Negative, Urine Nitrate Negative, Urine Bili castaneda Negative, Urine Urobilinogen 0.2, Ur Leukocyte Esterase Negative, Urine RBC None, Urine WBC Occasional, Ur Squamous Epith Cells Occasional, Urine Bacteria None I & O for Last 24 hours: Intake & Output 07/08/22 07/09/22 07/10/22 07/11/22 11:59 11:59 11:59 11:59 Intake Total 1895 / 1895 1918 / 1918 2813 / 2813 Output Total 0 / 0 150 / 150 1650 / 1650 Balance 1895 / 1895 1768 / 1768 1163 / 1163 Weight 141 lb 1.533 oz 145 lb 139 lb 1 oz *Routine Abdominal Exam Abdominal: Present soft Comments: PEG tube site clean. Incision clean and intact. Progress Note: A&P Assessment and plan (1) Feeding difficulty: Status: Acute (2) Supranuclear palsy: Status: Acute Assessment and Plan Assessment and Plan for All Diagnoses:: Okay for discharge back to skilled nursing
--- NOTE | 2022-07-11 09:34 | EXP.DC.SUM ---
General Admission date:: 07/08/22 Discharge date: 07/11/22 HPI HPI HPI: This is a 67-year-old gentleman who presents for percutaneous endoscopic gastrostomy tube. Repeat dysphagia evaluation completed earlier this week confirmed persistent impairment. Recommendations for completion modified barium swallow after PEG placement were made. Forwarded from office visit dated June 30, 2022: This is a 67-year-old gentleman seen in consultation from his primary care provider for gastrostomy tube placement.? He was initially scheduled to undergo percutaneous gastrostomy tube at [facility]; however, his procedure was postponed/canceled secondary to temporary absence of surgical coverage. Reportedly, a modified barium swallow has been performed but was quite a while ago . He has seemingly been suffering from increasing dysphagia and has lost approximately 200 pounds over the past number of months . Above note per surgical H&P. Some details need more discussion-patient is a longtime patient of the [facility] who has been cachectic and it neurologically impaired for several years, not months. He has a degenerative neurologic condition most clinically relevant to supranuclear palsy and follows with [facility]. He however is alert and oriented x3 and after several discussions with him on her correction rounds, the process of PEG placement was undertaken as noted above. Apparently had the PEG put in on admission. However was pulled out by patient after he had altered mental status. Taken back to the OR another PEG was put in. He is now on second floor with one-on-one care and an abdominal binder to try to make sure this does not happen again. Hospital Course Hospital Course Hospital Course: Patient was taken to endoscopy and underwent percutaneous endoscopic gastrostomy tube by Dr. Maya on 07/08/2022 in the early afternoon. He was admitted for short-term observation. Precautions were taken to prevent dislodgment of the tube. However, despite precautions patient had inadvertently pulled the PEG tube out several hours after placement. Given the dislodgment of newly placed PEG tube patient was taken emergently to the operating room in the evening of 07/08/2022 and underwent laparotomy. He had replacement of balloon type XX Frisian gastrostomy tube through the previous gastrotomy site. Please see operative dictation for details. Patient was admitted for postoperative convalescence and observation. The following morning on 07/09/2022 the tube was used for medications. On 07/10/2022 tube feeds were reinitiated beginning at 20 mL/h and increasing as tolerated. Residuals were minuscule. He reached goal tube feeds with no evidence of any appreciable residuals. Arrangements were made for discharge back to correction. Exam Data for Last 24 hours Vital signs and Labs for Last 24 Hours: Temp Pulse Resp BP Pulse Ox 97.9 F 50 L 18 157/82 H 95 07/11/22 08:00 07/11/22 08:00 07/11/22 08:00 07/11/22 08:00 07/11/22 08:00 Laboratory Results - last 24 hr 07/08/22 10:28: Urine Color Yellow, Urine Appearance Clear, Urine pH 7.0, Ur Specific Gary 1.010, Urine Protein Negative, Urine Glucose (UA) Negative, Urine Ketones Trace, Urine Blood Negative, Urine Nitrate Negative, Urine Bilirubin Negative, Urine Urobilinogen 0.2, Ur Leukocyte Esterase Negative, Urine RBC None, Urine WBC Occasional, Ur Squamous Epith Cells Occasional, Urine Bacteria None I & O for Last 24 hours: Intake & Output 07/08/22 07/09/22 07/10/22 07/11/22 11:59 11:59 11:59 11:59 Intake Total 1895 / 1895 1918 / 1918 2813 / 2813 Output Total 0 / 0 150 / 150 1650 / 1650 Balance 1895 / 1895 1768 / 1768 1163 / 1163 Weight 141 lb 1.533 oz 145 lb 139 lb 1 oz Results Data Completed and Pending Labs on day of discharge: Labs from last 24 hours 07/08/22 10:28 Urine Color Yellow Urine A
--- NOTE | 2022-07-11 11:16 | PC.NURSE ---
REPORT CALLED TO [facility]
--- NOTE | 2022-07-11 11:20 | PC.NURSE ---
REPORT CALLED TO [facility] NOTIFIED OF TRANSFER.
== END 2022-07-11 11:45 | DRG 394 ==
LOC: OUTP 12:53 → 2ND 07-09 11:30
PROVIDERS: Surgery; Admitting Provider Surgery; PCP Surgery; Visit Provider Surgery
PROC: 0DH63UZ Insertion of Feeding Device into Stomach, Percutaneous Approach (ICD-10-PCS; CPT 43246; principal; 2022-07-08 11:45)
PROC: 0DH60UZ Insertion of Feeding Device into Stomach, Open Approach (ICD-10-PCS; CPT 49000; principal; 2022-07-08 20:00)
DX: K94.29 Other complications of gastrostomy (principal); E46 Unspecified protein-calorie malnutrition; Z68.1 Body mass index [BMI] 19.9 or less, adult; Y83.3 Surgical operation with formation of external stoma as the cause of abnormal reaction of the patient, or of later complication, without mention of misadventure at the time of the procedure; R63.30 Feeding difficulties, unspecified; N40.1 Benign prostatic hyperplasia with lower urinary tract symptoms; R47.1 Dysarthria and anarthria; I10 Essential (primary) hypertension; E78.5 Hyperlipidemia, unspecified; E66.9 Obesity, unspecified; Z96.652 Presence of left artificial knee joint; G83.9 Paralytic syndrome, unspecified
CPT/HCPCS: 43246; 43830; G0379; 81001; 92610; C9803; J2405; U0003; U0005

== ENCOUNTER → 2022-07-20 11:00 | Outpatient (CLI) | payer MEDICARE, MEDICAID, SELFPAY ==
--- NOTE | 2022-07-20 11:00 | FL_ITS ---
FINAL REPORT CLINICAL HISTORY: ft 2.42 FINDINGS: MODIFIED BARIUM SWALLOW History: Dysphagia. FINDINGS: Fluoroscopy was provided for the speech pathologist to evaluate the swallowing mechanism. The patient was given several different consistencies of barium while the swallow was visualized fluoroscopically. The report of the speech pathologist should be consulted prior to making dietary decisions. FLUOROSCOPY TIME: 2 minutes 42 seconds. 11 cine runs were obtained. IMPRESSION: Modified barium swallow under fluoroscopic guidance. Please see the report of the speech pathologist for more detail. Films reviewed , interpreted and dictated by Dr. Keya Cortez. Transcribed by Byran Metz PA-C. Reviewed, Interpreted and Dictated by Keya Cortez MD Transcribed by KURT Pink Authenticated and [facility]
--- NOTE | 2022-07-20 14:01 | HMH.SLMBS2 ---
Speech & Language Evaluation Speech/Language Mod Barium Swallow Start: 07/20/22 13:08 Freq: once Status: Complete Protocol: Document 07/20/22 13:08 ALEJO (Rec: 07/20/22 14:01 ALEJO [id number]) General Information General Current Food Consistency Pudding Liquids Dentition Edentulous Oxygen Status Room Air Facial Symmetry Symmetrical Ability to Follow Directions Fair Communication Ability Moderate Impairment MBS Recommendations Diet Dietary Recommendations Pureed,Thin Liquids Treatment/Strategies Strategy/Precaution Recommend Sitting Upright (90 deg),Small Bites and Sips,Alternate Liquids/Solids Mod Barium Swallow Impressions Summary and Impressions Oral Phase Impression Moderate Impairment Oral Phase Summary Moderate oral dysphagia. Pt had significant difficulty with mastication and at one point had large piece of unmasticated mech soft solid in his oral cavity that he needed cues to masticate. He also had difficulty with AP transit of barium tablet, which he was able to clear with a liquid wash. Prespill to the pyriforms 2' decreased back of tongue control. Pharyngeal Phase Impression Mild Impairment Pharyngeal Phase Summary Mild pharyngeal dysphagia. Delayed swallow to the pyriform sinuses. Aspiration x1 noted with large uncontrolled straw drink of thin, however, pt independently able to clear aspirated material from the airway. Intermittent transient penetration noted with thin liquids with controlled open cup and straw drinks. Penetration 2' delayed swallow , reduced BOT retraction, and reduced epiglottic inversion. P[employer]ER [employer]ER trialed nectar thick liquids and pt demonstrated deeper penetration than with thins. No significant pharyngeal residue was noted on the study. Speech/Language MBS Assessment/Goals/Plan Assessment
== END ==
PROVIDERS: PCP Surgery; Visit Provider Surgery
DX: R63.30 Feeding difficulties, unspecified (principal)
CPT/HCPCS: 70371; 92611